=== PATIENT | male | born 1970 | race Caucasian/White ===

== ENCOUNTER 2017-10-26 10:12 | Inpatient (IN) | payer OTHER ==
[~2017-10-26] VITALS: Ht 175.3 cm; Wt 104.5 kg
[~2017-10-26 10:12] MED LIST: AMOXIL 875 MG875 MG PO; AUGMENTIN 875 M1 TAB PO; CALCIUM + D 6001 TAB PO; CLARITIN10 MG PO; FLUTICASONE PRO16 GM NASB; KEFLEX500 MG PO; LOSARTAN POTASS50 MG PO; MONTELUKAST SOD10 MG PO; MOTRIN600 MG PO; MULTIVITAMIN1 TAB PO; NORVASC5 M1 PO; OMEPRAZOLE40 MG PO; SYMBICORT 160/41 PUF INH
[2017-10-26] MEDS ORDERED: TRAZODONE HCL100 M1 PO (11:12)
[2017-10-26] MEDS ORDERED: MIRALAX17 G1 PO (11:12)
[2017-10-26] MEDS ORDERED: LIVER REFRESH PO (11:13)
--- NOTE | 2017-10-26 11:44 | ED GI/GU/ABDOMINAL COMPLAINT ---
History of Present Illness General Chief Complaint: Abdominal Pain/Flank Pain Stated Complaint: ABD DISTENTION; JAUNDICE Source: patient Exam Limitations: no limitations Vital Signs & Intake/Output Vital Signs & Intake/Output Vital Signs Date Time Temp Pulse Resp B/P B/P Pulse O2 O2 Flow FiO2 Mean Ox Delivery Rate 10/26 1350 100.1 96 18 113/67 93 Room Air 10/26 1149 97 Room Air 10/26 1019 99.2 127 20 135/85 94 Room Air Allergies Coded Allergies: NO KNOWN ALLERGIES (11/07/10) Reconcile Medications Amlodipine Besylate (Norvasc) 5 MG TABLET 1 TAB PO DAILY HTN (Reported) Fluticasone Propionate 50 MCG/ACTUATION SPRAY.SUSP 2 SPRAY NASB DAILY ALLERGIES (Reported) [LIVER REFRESH] 1 TAB PO DAILY UNKNOWN (Reported) Polyethylene Glycol 3350 (Miralax) 17 GRAM POWD.PACK 1 PAC PO DAILY CONSTIPATION (Reported) dissolve in water Trazodone HCl 100 MG TABLET 1 TAB PO QPM DEPRESSION (Reported) Triage Note: PT TO ED C/O LOWER ABD PAIN WITH ABD DISTENTION. PT APPEARS VERY JAUNDICE. Triage Nurses Notes Reviewed? yes Onset: Gradual Duration: worse persistent since (1 week) Timing: no prior history Quality/Severity: cramping, sharpness Severity Numbers: 6 Location: generalized abdomen Radiation: no radiation Activities at Onset: none Prior Abdominal Problems: none Past Sexual History: Unobtainable at this time Modifying Factors: Worsens With: other (exertion). HPI: Patient is a 46-year-old male with history of hypertension presenting to the emergency department to complaint of abdominal distention, diffuse abdominal discomfort, yellowing skin and eyes nose first nose approximately one week ago. Symptoms getting worse. Reports that he drinks alcohol occasionally. No history of similar symptoms in the past. Patient does report that he always has to watch what he eats because he is sensitive to several foods that upset his stomach. No family history of liver issues. Patient denies any drug use. No fevers or chills. No malaise. Positive shortness of breath is worse with exertion. Denies any sputum production. No recent travel. Denies recent antibiotic use. No changes in medications. Denies history of any abdominal surgeries. Denies any lower extremities edema. No palpitations. Denies dizziness or visual changes. Denies any change in bowel or bladder habits. Last bowel movement was this morning and normal. No blood in the stool. (Jazmine Coleman) Past History Travel History Traveled to [place] past 21 day No Medical History Any Pertinent Medical History? see below for history Cardiovascular: hypertension Tetanus Vaccine: 04/08/14 Surgical History Surgical History: non-contributory Psychosocial History What is your primary language Citizen Of [place] Tobacco Use: Quit >30 days ago ETOH Use: occasional use Illicit Drug Use: denies illicit drug use Family History Hx Contributory? No (Jazmine Coleman) Review of Systems Review of Systems Constitutional: Reports: see HPI, malaise. Comments Review of systems: See HPI, All other systems negative. Constitutional, no chills fever or weight loss HEENT: No visual changes no sore throat no congestion Cardiovascular: No chest pain ,palpitation , orthopnea or ankle swelling Skin, no rashes Respiratory: No cough sputum or hemoptysis GI: No nausea no vomiting : No dysuria No hematuria Muscle skeletal: no back pain, no neck pain, Neurologic: No numbness no confusion Psych: Stress related to family issues. No HI or SI. Heme/endocrine: No bruising no bleeding no polyuria or polydipsia Immunology: No splenectomy or history of AIDS (Jazmine Coleman) Physical Exam Physical Exam General Appearance: alert, awake, comfortable, overtly jaundiced appearing Gastrointestinal: distention, tenderness Comments: Well-developed well-nourished person in no acute distress HEENT: extraocular motion intact, no nystagmus. Pupils equally round and reactive to light and accommodation. No scleral icterus present. Mild pallor noted to ocular conjunctiva bilaterally. Nose is atraumatic. External auditory canal and Tympanic membranes clear. Pharynx normal. No swelling or edema. Neck: Normal inspection, full range of motion Back: Nontender, no CVA tenderness. Full range of motion Cardiovascular: Regular rate and rhythms no murmurs rubs or gallops, normal JVP Respiratory: Chest nontender. No respiratory distress.breath sounds diminished to auscultation bilaterally Abdomen: Diffusely distended and tense, increased vasculature noted in the central aspect of the abdomen ,few telangiectasias noted. Hypoactive bowel sounds throughout. Positive ascites noted. Extremity: No edema, no calf tenderness to palpation, normal and equal pulses. Neuro: Alert oriented x3, motor sensory normal, cranial nerves II through XII grossly intact. Skin: Diffuse jaundice appreciated on the face, abdomen. Psych: Mood and affect is normal, memory and judgment is normal. Core Measures ACS in differential dx? No Sepsis Present: No Sepsis Focused Exam Completed? No (Scot PAZ,Jazmine) Progress Differential Diagnosis: SBO, LIVER FAILURE, CHOLECYSTITIS, CHOLEDOCHOLITHIASIS, CHOLANGITIS, PANCREATITIS, PANCREATIC CANCER, ASCITES, BACTERIAL PERITONITIS, HEPATITIS Plan of Care: Orders Procedure Date/time Status PROTHROMBIN TIME 10/27 599 Active HEPATIC FUNCTION PANEL 10/27 599 Active CBC WITHOUT DIFFERENTIAL 10/27 599 Active BASIC ELECTROLYTES PLUS BUN&CR 10/27 06 Active Regular Diet 10/26 D Active Pathway - chart 10/26 1530 Active House Staff 10/26 1530 Active Patient Data 10/26 1530 Active Code Status 10/26 1530 Active Change service to 10/26 1526 Active LACTIC ACID 10/26 1421 Active Patient Data 10/26 1346 Active CULTURE,BODY FLUID 10/26 1336 Active OXYGEN SETUP (GEN) 10/26 1240 Active Saline Lock 10/26 1240 Active Admit to inpatient 10/26 1240 Active Vital Signs 10/26 1240 Active Activity/Ambulation 10/26 1240 Active Code Status 10/26 1240 Complete EKG 10/26 1210 Active Add-on Test (ER Only) 10/26 1204 Active Intake & Output 10/26 1148 Active BLOOD CULTURE 10/26 1146 Active LIPASE 10/26 1130 Active DIRECT BILIRUBIN 10/26 1130 Active COMPREHENSIVE METABOLIC PANEL 10/26 1130 Active AMYLASE 10/26 1130 Active PARTIAL THROMBOPLASTIN TIME 10/26 1121 Complete PROTHROMBIN TIME 10/26 1121 Complete AMMONIA 10/26 1121 Active LACTIC ACID 10/26 1121 Active HEPATITIS PANEL 10/26 1121 Active CBC WITHOUT DIFFERENTIAL 10/26 1120 Complete URINALYSIS 10/26 1041 Complete Current Medications Sig/Yuval Start time Last Medication Dose Stop Time Status Admin Lactulose 20 GM TID 10/26 1600 AC 10/26 (Enulose 20GM/30ML) 1612 Folic Acid 1 MG DAILY 10/26 1535 AC 10/26 (Folic Acid) 1612 Amlodipine Besylate 5 MG DAILY 10/26 1528 AC 10/26 (Norvasc) 1612 Phytonadione 10 MG DAILY 10/26 1528 AC 10/26 (Mephyton 5MG Tab) 10/29 0959 1612 Sodium Chloride 1,000 ML ONCE ONE 10/26 1245 AC 10/26 (Normal Saline 0.9%) 10/27 0204 1300 Laboratory Tests 10/26/17 1344: Fluid Albumin Cancelled 10/26/17 1336: Fluid WBC Cancelled, Fld Total RBCs Counted Cancelled 10/26/17 1130: Anion Gap 16, Estimated GFR > 60, BUN/Creatinine Ratio 11.7, Glucose 149 H, Lactic Acid 4.3 H, Calcium 8.2 L, Total Bilirubin 19.8 H, Direct Bilirubin 17.6 H, AST 232 H, ALT 59, Alkaline Phosphatase 187 H, Ammonia 82 H, Total Protein 6.7, Albumin 3.0 L, Globulin 3.7, Albumin/Globulin Ratio 0.8 L, Amylase < 30 L, Lipase 44, PT 104.6 *H, INR 9.38 *H, APTT 64 H, CBC w Diff MAN DIFF ORDERED, RBC 3.46 L, MCV 103.8 H, MCH 35.9 H, MCHC 34.6, RDW 19.9 H, MPV 8.9, Segmented Neutrophils 83 H, Band Neutrophils 9 H, Lymphocytes 4 L, Monocytes 4, Platelet Estimate ADEQUATE, Normocytic RBCs VERIFIED, Normochromic RBCs VERIFIED, Hepatitis A IgM Ab Pending, Hep Bs Antigen NONREACTIVE, Hep B Core IgM Ab Conf Pending, Hepatitis C Antibody Pending 10/26/17 1120: Sodium Cancelled, Potassium Cancelled, Chloride Cancelled, Carbon Dioxide Cancelled, Anion Gap Cancelled, BUN Cancelled, Creatinine Cancelled, BUN/ Creatinine Ratio Cancelled, Glucose Cancelled, Calcium Cancelled, Total Bilirubin Cancelled, Direct Bilirubin Cancelled, AST Cancelled, ALT Cancelled, Alkaline Phosphatase Cancelled, Total Protein Cancelled, Albumin Cancelled, Globulin Cancelled, Albumin/Globulin Ratio Cancelled 10/26/17 1050: Urine Color ICTRC H, Urine Clarity CLDY H, Urine pH 6.5, Ur Specific [place] 1.025, Urine Protein 100 H, Urine Ketones TRACE H, Urine Nitrite POS H, Urine Bilirubin POS@ICTO H, Urine Urobilinogen 1.0, Ur Leukocyte Esterase NEG, Ur Microscopic SEDIMENT EXAMINED, Urine RBC RARE, Urine WBC 1-3 H, Ur Epithelial Cells MANY H, Urine Mucus MOD H, Micro UA Comment , Urine Hemoglobin TRACE- INTACT H, Urine Glucose NEG Microbiology 10/26 1347 BLOOD: Blood Culture - RECD 10/26 1336 BODY FLUID: Body Fluid Culture - ORD 10/26 1336 BODY FLUID: Gram Stain - ORD 10/26 1155 BLOOD: Blood Culture - RECD 10/26/2017 12:46:00 PM arrival patient is afebrile vitals are stable. Patient does have protuberant abdomen, diffuse jaundice with scleral icterus. Sensory biliary or liver process. Patient does report that he drinks often but denies daily alcohol use. Last drink was yesterday, reports 4 beers. Pending imaging patient will likely need paracentesis. 10/26/2017 1:36:57 PM patient has elevated white blood cell count at 20, temperature is 99.5 Fahrenheit, spoke with Dr. MACHADO, recommending we prophylactically treat with Unasyn for questionable peritonitis spite not having done paracentesis YET. 10/26/2017 2:04:[address] Lopez in radiology, calling in regards to paracentesis order. He reports that there is not enough fluid to be tapped and paracentesis cannot be done at this time. He also suggested paracentesis cannot be done at this time because INR level is elevated. 10/26/2017 2:44:[address] Diane, gastroenterology, recommending paracentesis needs to be done for diagnostic tap, he'll consult with medicine team to arrange us as it was previously canceled based on recommendations by radiology. Patient admitted for cirrhosis, elevated LFTs, hyperbilirubin anemia. Discussed with . He agrees with plan. Diagnostic Imaging: Viewed by Me: Radiology Read, CT Scan. Discussed w/RAD: Radiology Read, CT Scan. Radiology Impression: PATIENT: JANETH KRAFT PRESENT AGE: 46 PATIENT ACCOUNT NO: [id number] : 71 LOCATION: [facility] [place] ORDERING PHYSICIAN: Jazmine PAZ SERVICE DATE: 10/26/17114 EXAM TYPE: CAT - CT ABD & PELVIS W IV CONTRAST EXAMINATION: CT ABDOMEN AND PELVIS WITH CONTRAST CLINICAL INFORMATION: Abdominal pain. Distention, jaundice. Rule out hepatobiliary process COMPARISON: Prior abdominal ultrasound 09/01/2013 TECHNIQUE: Multidetector volumetric imaging was performed of the abdomen and pelvis following IV administration of 95 mL of Optiray 320 intravenous contrast. Sagittal and coronal reformatted images were obtained on the technologist's workstation. DLP: 986 mGy-cm FINDINGS: LUNG BASES: Bibasilar atelectasis. LIVER, GALLBLADDER, AND BILIARY TREE: There is diffuse hepatomegaly. The liver is diffusely hypoattenuating, particularly peripherally consistent with hepatic steatosis or more likely edema. There is enlargement of the caudate lobe. The portal veins enhance normally. The hepatic veins appear attenuated, possibly compressed, but they remain patent. The gallbladder is unremarkable with no evidence of radiopaque gallstones, gallbladder wall thickening, or obvious pericholecystic inflammatory changes. PANCREAS: Unremarkable. SPLEEN: Spleen is enlarged measuring 16-17 cm craniocaudal. No focal splenic lesion. ADRENAL GLANDS: No adrenal mass. KIDNEYS AND URETERS: Symmetric bilateral renal enhancement. 3.7 cm right lower pole renal cyst. 1.1 cm simple cyst of the posterior cortex of the right mid-upper kidney. No hydronephrosis, calculi, or solid mass. BLADDER: Unremarkable. GASTROINTESTINAL TRACT: The small and large bowel are unremarkable. The appendix is unremarkable. ABDOMINAL WALL: There is mild fluid/fat stranding of the subcutaneous fat suggesting early anasarca. LYMPH NODES: Normal. VASCULAR: Normal caliber abdominal aorta. PELVIC VISCERA: The prostate and seminal vesicles are unremarkable. OSSEOUS STRUCTURES: Degenerative disc disease at L5-S1. Age indeterminate but likely chronic superior endplate compression deformity of T12. Normal sagittal alignment. Asymmetric moderate degenerative arthrosis of the left hip with subchondral cyst formation. There may be some degree of developmental hip dysplasia or a background of prior avascular necrosis. There is a small volume of ascites with trace fluid seen adjacent the liver and spleen and greater amount of fluid dependently in the pelvis. IMPRESSION: Enlarged, hypoattenuating liver. The appearance favors diffuse hepatic congestion and edema although there may be a component of diffuse fatty infiltration as well. There is ascites. The appearance is nonspecific but I would favor a diffuse infiltrative process such as acute hepatitis. Marked steatohepatitis should be considered in the appropriate clinical setting. There is no biliary ductal dilation to suggest obstruction as the etiology for the patient's jaundice. DICTATED BY: Alonzo Ye MD DATE/TIME DICTATED:10/26/171407 SENIOR ENGINEER:PRAHCI DATE/TIME TRANSCRIBED:10/26/171407 CONFIDENTIAL, DO NOT COPY WITHOUT APPROPRIATE AUTHORIZATION. <Electronically signed in Other Vendor System> SIGNED BY: Alonzo Ye MD 10/26/17 1420 CXR Impression: PATIENT: JANETH KRAFT PRESENT AGE: 46 PATIENT ACCOUNT NO: [id number] : 71 LOCATION: [facility] ORDERING PHYSICIAN: Jazmine PAZ SERVICE DATE: 10/26/17 EXAM TYPE: RAD - XRY-PORTABLE CHEST XRAY EXAMINATION: XR PORTABLE CHEST CLINICAL INFORMATION: Shortness of breath. Assess for pneumonia or cardiomegaly. COMPARISON: Chest x- ray 07/04/2016. TECHNIQUE: Portable AP 80 degrees semierect view of the chest was obtained. FINDINGS: The lung colvin are hypoexpanded. There is nonspecific mild elevation of the right hemidiaphragm. Linear opacity at the right base is most consistent with atelectasis. There is no focal consolidation. The cardiac silhouette is normal. There are no pleural effusions or pneumothoraces. The central pulmonary vasculature appears normal. There are no acute osseous findings. IMPRESSION: 1. There are no acute cardiopulmonary findings. DICTATED BY: John Galvan MD DATE/TIME DICTATED:10/26/171305 SENIOR ENGINEER:PRACHI DATE/TIME TRANSCRIBED:10/26/171305 CONFIDENTIAL, DO NOT COPY WITHOUT APPROPRIATE AUTHORIZATION. <Electronically signed in Other Vendor System> SIGNED BY: John Galvan MD 10/26/17 1312 Initial ED EKG: SINUS TACHYCARDIA AT 101 BEATS PER MINUTES, ARTIFACT PRESENT Prior EKG: unchanged (Jazmine Coleman) Radiology Impression: PATIENT: JANETH KRAFT PRESENT AGE: 46 PATIENT ACCOUNT NO: [id number] : 71 LOCATION: [facility] [place] ORDERING PHYSICIAN: Jazmine PAZ SERVICE DATE: 10/26/17 EXAM TYPE: CAT - CT ABD & PELVIS W IV CONTRAST EXAMINATION: CT ABDOMEN AND PELVIS WITH CONTRAST CLINICAL INFORMATION: Abdominal pain. Distention, jaundice. Rule out hepatobiliary process COMPARISON: Prior abdominal ultrasound 09/01/2013 TECHNIQUE: Multidetector volumetric imaging was performed of the abdomen and pelvis following IV administration of 95 mL of Optiray 320 intravenous contrast. Sagittal and coronal reformatted images were obtained on the technologist's workstation. DLP: 986 mGy-cm FINDINGS: LUNG BASES: Bibasilar atelectasis. LIVER, GALLBLADDER, AND BILIARY TREE: There is diffuse hepatomegaly. The liver is diffusely hypoattenuating, particularly peripherally consistent with hepatic steatosis or more likely edema. There is enlargement of the caudate lobe. The portal veins enhance normally. The hepatic veins appear attenuated, possibly compressed, but they remain patent. The gallbladder is unremarkable with no evidence of radiopaque gallstones, gallbladder wall thickening, or obvious pericholecystic inflammatory changes. PANCREAS: Unremarkable. SPLEEN: Spleen is enlarged measuring 16-17 cm craniocaudal. No focal splenic lesion. ADRENAL GLANDS: No adrenal mass. KIDNEYS AND URETERS: Symmetric bilateral renal enhancement. 3.7 cm right lower pole renal cyst. 1.1 cm simple cyst of the posterior cortex of the right mid-upper kidney. No hydronephrosis, calculi, or solid mass. BLADDER: Unremarkable. GASTROINTESTINAL TRACT: The small and large bowel are unremarkable. The appendix is unremarkable. ABDOMINAL WALL: There is mild fluid/fat stranding of the subcutaneous fat suggesting early anasarca. LYMPH NODES: Normal. VASCULAR: Normal caliber abdominal aorta. PELVIC VISCERA: The prostate and seminal vesicles are unremarkable. OSSEOUS STRUCTURES: Degenerative disc disease at L5-S1. Age indeterminate but likely chronic superior endplate compression deformity of T12. Normal sagittal alignment. Asymmetric moderate degenerative arthrosis of the left hip with subchondral cyst formation. There may be some degree of developmental hip dysplasia or a background of prior avascular necrosis. There is a small volume of ascites with trace fluid seen adjacent the liver and spleen and greater amount of fluid dependently in the pelvis. IMPRESSION: Enlarged, hypoattenuating liver. The appearance favors diffuse hepatic congestion and edema although there may be a component of diffuse fatty infiltration as well. There is ascites. The appearance is nonspecific but I would favor a diffuse infiltrative process such as acute hepatitis. Marked steatohepatitis should be considered in the appropriate clinical setting. There is no biliary ductal dilation to suggest obstruction as the etiology for the patient's jaundice. DICTATED BY: Alonzo Ye MD DATE/TIME DICTATED:10/26/171407 SENIOR ENGINEER:PRACHI DATE/TIME TRANSCRIBED:10/26/171407 CONFIDENTIAL, DO NOT COPY WITHOUT APPROPRIATE AUTHORIZATION. <Electronically signed in Other Vendor System> SIGNED BY: Alonzo Ye MD 10/26/17 1420 (Demetri Machado MD) Departure Departure Time of Disposition: 1447 Disposition: STILL A PATIENT Condition: Stable Clinical Impression Primary Impression: Hyperbilirubinemia Secondary Impressions: Elevated INR, Transaminitis Referrals: Clau Bahena MD (PCP/Family) Departure Forms: Customer Survey General Discharge Information Admission Note Spoke With: Ean Edmonds MD Documentation of Exam: Documentation of any treatments & extenuating circumstances including Concerns Regarding Discharge (functional status, medication knowledge or non-compliance, living conditions, etc.) that warrant an admission rather than observation: requiring GI consultation for ascites, pending peritoneal fluid analysis patient may need continued antibiotics, serial lab checks including coagulation studies to ensure they are normalizing with treatmenT. (Jazmine Coleman) PA/THEOLOGY TEACHER Co-Sign Statement Statement: ED Attending supervision documentation- x I saw and evaluated the patient. I have also reviewed all the pertinent lab results and diagnostic results. I agree with the findings and the plan of care as documented in the PA's/THEOLOGY TEACHER's documentation. Abdominal distension, caput medusae, jaundice CT without biliary obstruction. [] I have reviewed the ED Record and agree with the PA's/THEOLOGY TEACHER's documentation. [] Additions or exceptions (if any) to the PAs/THEOLOGY TEACHER's note and plan are summarized below: [] (Demetri Machado MD) Critical Care Note Critical Care Note Critical Care Time: 30-74 min (Jazmine Coleman)
[2017-10-26 11:47] LABS: HEMATOCRIT 35.9 % (42-52); MEAN CORPUSCULAR HGB 35.9 PG (27.0-31.0); MEAN CORPUSCULAR HGB CONC 34.6 G/DL (33.0-37.0); MEAN CORPUSCULAR VOLUME 103.8 FL (80.0-94.0); MEAN PLATELET VOLUME 8.9 FL (7.4-10.4); PLATELET COUNT 203 /CUMM (130-400); RBC DISTRIBUTION WIDTH 19.9 % (11.5-14.5); RED BLOOD CELL CT 3.46 /CUMM (4.70-6.10); WHITE BLOOD CELL COUNT 20.1 /CUMM (4.8-10.8)
[2017-10-26 12:00] LABS: PTT 64 SEC (25-37)
[2017-10-26 12:08] LABS: PT 104.6 SEC (9.4-12.5)
--- NOTE | 2017-10-26 13:12 | RADIOLOGY REPORT ---
EXAMINATION: XR PORTABLE CHEST CLINICAL INFORMATION: Shortness of breath. Assess for pneumonia or cardiomegaly. COMPARISON: Chest x-ray 07/04/2016. TECHNIQUE: Portable AP 80 degrees semierect view of the chest was obtained. FINDINGS: The lung colvin are hypoexpanded. There is nonspecific mild elevation of the right hemidiaphragm. Linear opacity at the right base is most consistent with atelectasis. There is no focal consolidation. The cardiac silhouette is normal. There are no pleural effusions or pneumothoraces. The central pulmonary vasculature appears normal. There are no acute osseous findings. IMPRESSION: 1. There are no acute cardiopulmonary findings.
--- NOTE | 2017-10-26 13:52 | History & Physical ---
See Addendum Kee Guzman 10/26/17 1351: General Information and HPI History of Present Illness: Ms. Barbosa is a 46 yo (1PPD x 1.5 yrs, quit 6 mos ago) male with PMH significant for HTN, ILD (organizing PNA on biopsy 2012) s/p LLL wedge resection , alcoholic hepatitis without cirrhosis s/p biopsy (05/2016), alcohol use disorder, BL gynecomastia who presents to the ED with yellowish skin and eyes for the past 1 week. Patient reports prior to [facility] his friend told him that his eyes and skin were yellow though he did not recognize it. At that time he did notice diffused abdominal pain accompanied by abdominal distention, and a left groin pain that radiates to his LLE. He also reports nausea with and a poor appetite which he attributes to stress. Yesterday he drank 2 shots of alcohol but reports he drinks occasionally. He also reports poor sleep due to his depression and stress. He has been short of breath for years but is able to walk up to 2 miles. He is being seen by Dr. Jackelin Camejo at [facility]. He reports in the past he was given a 6 month Prednisone taper for his lung disease in the past. He denies CP, confusion, diarrhea, constipation, melena, hematemesis, blurry vision, urinary symptoms. Allergies/Medications Allergies: Coded Allergies: NO KNOWN ALLERGIES (11/07/10) Home Med list Amlodipine Besylate (Norvasc) 5 MG TABLET 1 TAB PO DAILY HTN (Reported) Fluticasone Propionate 50 MCG/ACTUATION SPRAY.SUSP 2 SPRAY NASB DAILY ALLERGIES (Reported) [LIVER REFRESH] 1 TAB PO DAILY UNKNOWN (Reported) Polyethylene Glycol 3350 (Miralax) 17 GRAM POWD.PACK 1 PAC PO DAILY CONSTIPATION (Reported) dissolve in water Trazodone HCl 100 MG TABLET 1 TAB PO QPM DEPRESSION (Reported) Past History Travel History Traveled to [place] past 21 day No Medical History Cardiovascular: hypertension Respiratory: organizing pneumonia Hepatic: alcoholic hepatitis Influenza Vaccine: 05/20/17 Tetanus Vaccine: 04/08/14 Surgical History Surgical History: non-contributory Past Family/Social History Psychosocial History Smoking Status: Former Smoker ETOH Use: occasional use Illicit Drug Use: denies illicit drug use Sexual History Past Sexual History Unobtainable at this time Review of Systems Review of Systems Constitutional: Reports: see HPI. Exam & Diagnostic Data Last 24 Hrs of Vital Signs/I&O Vital Signs Date Time Temp Pulse Resp B/P B/P Pulse O2 O2 Flow FiO2 Mean Ox Delivery Rate 10/26 1149 97 Room Air 10/26 1019 99.2 127 20 135/85 94 Room Air Intake & Output 10/26 1600 10/26 0800 10/26 0000 Intake Total 0 Output Total Balance 0 Intake, Oral 0 Patient 240 lb Weight Weight Standing Scale Measurement Method Physical Exam General Appearance Alert, Oriented X3, Cooperative, No Acute Distress, obese Skin jaundice, petechiae HEENT sclera icteric, dry mucous membranes Neck prominent JVD Cardiovascular Regular Rate, Normal S1, Normal S2, No Murmurs Lungs Clear to Auscultation, Normal Air Movement Abdomen abdominal distention with distended veins Extremities BL tremors Breasts No breast discharge, No breast masses, no breast tenderness Last 24 Hrs of Labs/Harinder: Laboratory Tests 10/26/17 1130: Anion Gap 16, Estimated GFR > 60, BUN/Creatinine Ratio 11.7, Glucose 149 H, Lactic Acid 4.3 H, Calcium 8.2 L, Total Bilirubin 19.8 H, Direct Bilirubin 17.6 H, AST 232 H, ALT 59, Alkaline Phosphatase 187 H, Ammonia 82 H, Total Protein 6.7, Albumin 3.0 L, Globulin 3.7, Albumin/Globulin Ratio 0.8 L, Amylase < 30 L, Lipase 44, PT 104.6 *H, INR 9.38 *H, APTT 64 H, CBC w Diff MAN DIFF ORDERED, RBC 3.46 L, MCV 103.8 H, MCH 35.9 H, MCHC 34.6, RDW 19.9 H, MPV 8.9, Segmented Neutrophils 83 H, Band Neutrophils 9 H, Lymphocytes 4 L, Monocytes 4, Platelet Estimate ADEQUATE, Normocytic RBCs VERIFIED, Normochromic RBCs VERIFIED, Hepatitis A IgM Ab Pending, Hep Bs Antigen NONREACTIVE, Hep B Core IgM Ab Conf Pending, Hepatitis C Antibody Pending 10/26/17 1120: Sodium Cancelled, Potassium Cancelled, Chloride Cancelled, Carbon Dioxide Cancelled, Anion Gap Cancelled, BUN Cancelled, Creatinine Cancelled, BUN/ Creatinine Ratio Cancelled, Glucose Cancelled, Calcium Cancelled, Total Bilirubin Cancelled, Direct Bilirubin Cancelled, AST Cancelled, ALT Cancelled, Alkaline Phosphatase Cancelled, Total Protein Cancelled, Albumin Cancelled, Globulin Cancelled, Albumin/Globulin Ratio Cancelled 10/26/17 1050: Urine Color ICTRC H, Urine Clarity CLDY H, Urine pH 6.5, Ur Specific Orange 1.025, Urine Protein 100 H, Urine Ketones TRACE H, Urine Nitrite POS H, Urine Bilirubin POS@ICTO H, Urine Urobilinogen 1.0, Ur Leukocyte Esterase NEG, Ur Microscopic SEDIMENT EXAMINED, Urine RBC RARE, Urine WBC 1-3 H, Ur Epithelial Cells MANY H, Urine Mucus MOD H, Micro UA Comment , Urine Hemoglobin TRACE- INTACT H, Urine Glucose NEG Microbiology 10/26 1347 BLOOD: Blood Culture - RECD 10/26 1336 BODY FLUID: Body Fluid Culture - ORD 10/26 133 BODY FLUID: Gram Stain - ORD 10/26 1155 BLOOD: Blood Culture - RECD Diagnostic Data CXR Results FINDINGS: The lung colvin are hypoexpanded. There is nonspecific mild elevation of the right hemidiaphragm. Linear opacity at the right base is most consistent with atelectasis. There is no focal consolidation. The cardiac silhouette is normal. There are no pleural effusions or pneumothoraces. The central pulmonary vasculature appears normal. There are no acute osseous findings. IMPRESSION: 1. There are no acute cardiopulmonary findings. Other Results CT ABDOMEN AND PELVIS WITH CONTRAST IMPRESSION: Enlarged, hypoattenuating liver. The appearance favors diffuse hepatic congestion and edema although there may be a component of diffuse fatty infiltration as well. There is ascites. The appearance is nonspecific but I would favor a diffuse infiltrative process such as acute hepatitis. Marked steatohepatitis should be considered in the appropriate clinical setting. There is no biliary ductal dilation to suggest obstruction as the etiology for the patient's jaundice. Assessment/Plan Assessment: Ms. Barbosa is a 46 yo former smoker (1PPD x 1.5 yrs, quit 6 mos ago) male with PMH significant for HTN, 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 On review of records sent to Dr. Bahena, hepatitis panel done at [facility] in 2015 was negative except HBsAB. Liver biopsy done at [facility] showed severe macrovesicular steatosis and steatohepatitis with foci of bridging fibrosis Problem list: History of alcoholic hepatitis Recurrent jaundice and scleral icterus - may be 2/2 recent alcohol use Elevated INR Lactic acidosis Transaminitis Plan: Admit to general medicine for further evaluation and monitoring GI consult Continue amlodipine 5 mg Hold trazodone IV ceftriaxone for prophylaxis for SBP Gentle hydration Vitamin K 10 mg x 3 doses Lactulose daily Consider paracentesis if worsening ascitic fluid Utox lvl Diet: Regular DVT prophylaxis: ALPS Code: Full As Ranked By This Provider Problem List: 1. Transaminitis 2. Elevated INR 3. Hyperbilirubinemia Core Measures/Misc (04/05) Acute Coronary Syndrome ACS Diagnosis: No Congestive Heart Failure Congestive Heart Failure Diagnosis No Cerebrovascular Accident CVA/TIA Diagnosis: No VTE (View Protocol) VTE Risk Factors Age>40 No Mechanical VTE Prophylaxis d/t N/A MechProphylax Ordered No VTE Pharm Prophylaxis d/t NA PharmProphylax ordered Sepsis (View protocol) Sepsis Present: No Huma Hernandez MD 10/26/17 1352: Resident Review Statement Resident Statement: examined this patient, discussed with seo intern, agreed with seo intern, discussed with family Other Findings: Patient is a 46-year-old male presented with abdominal pain and distention. 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 He was evaluated in at [facility] in 2016 and hepatitis C/hepatitis A/HIV was negative and hepatitis B surface antibody was positive.Found to have high ferritin(6177), liver biopsy showed severe microvascular steatosis and , heterogeneous fibrosis with portal and periportal and sinusoidal and foci suggestive of bridging fibrosis. Advised for genetic mutation analysis for hemochromatosis. His Last INR 1.3 (2017) Echo with bubble study(2016) - LVEF 55%,? RVSP CTA chest 2017-pulmonary hypertension, 1 cm subcarinal lymph node. DLCO - low Personal history-He occasional use of alcohol, started at age of 21 and now drinking socially, he was also smokes 1 pack per day, but stopped since last 5-6 month. Denies for cocaine and illicit drug abuse. He is unemployed currently. 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 ED course - Vital signs temperature 99.2, pulse 197, respiratory rate 20, blood pressure 135 /85, SPO2 94% on room air Physical exam-comfortable, no acute distress, icteric sclera,oral mucosa dry, bilateral gynecomastia, Neck vein distended, spider angioma, chest bilateral equal air entry, heart S1-S2 normal, Abdomen moderately distended,Caput Meducae. Blood workup showed hemoglobin 12.4, hematocrit 35.9, platelet count 203, MCV 103.8, segmented neutrophils 83, antineutrophil 9, lymphocyte 4, sodium 138, potassium 3.5, chloride 103, carbon dioxide 18, anion gap 16, BUN 7, creatinine 0.6, glucose 149, lactic acid 4.3, calcium 8.2, total bilirubin 19.8, direct bilirubin 17.6, AST 232, ALT 59, alkaline phosphatase 97, ammonia 82, albumin 3.0, amylase less than 30, lipase 44, PT/INR 104/9.3 at, APTT 64, CXR - There are no acute cardiopulmonary findings. CT abdoman and Pelvis -enlarged liver secondary to fatty infiltration, steatohepatitis, hepatosplenomegaly, mild ascitis. Assessment and plan -history is taken from the patient and according to him he was here as his friend encouraged him for further evaluation. He was having chronic back pain, pain in his abdomen. He denies for any fever, chills, nausea , vomiting, diarrhea, blood loss from any site of his body. He drank around 4-6 glasses of alcohol and drank yesterday with his friends. On evaluation of emergency he found to have abnormal liver function tests including hyperbilirubinemia and transaminitis. CT scan of abdomen and pelvis showed mild ascites with severe hepatosplenomegaly. Probably he has alcoholic steatohepatitis which was confirmed before in 2016 and cleared up secondary to alcohol intake. He was also having high blood count/leukocytosis of 20,000 with mild bandemia. He also had lactic acidosis probably secondary to hepatitis. He was already given 1 L of fluid and antibiotic in the ED. We will follow repeat lactic acid. Acute on chronic compensated liver disease probably secondary to alcohol intake - * We will admit the patient to general medicine floor * We will check serum alcohol level * We will watch for CIWA but avoid lorazepam. * We will hold trazodone * Start patient on injection ceftriaxone 1 g IV daily for possible cholangitis * Syrup lactulose 20 g once a day with target of bowel movement of 2 - 3 times a day * Will follow GI recommendation High PT/INR - * Will watch for the bleeding * We will start patient on tablet vitamin K 10 mg -Once a day for 3 days * We will repeat LFT and PT/INR tomorrow Leukocytosis of unknown significance with mild grade fever with lactic acid - * We will follow the Blood culture, and continue on ceftriaxone ? cholangitis. Mild Ascitits -confirmed after talking to the radiologist * Will observe it Hypertension - * We will continue tablet amlodipine 5 mg once a day and will consider beta- jose if needed in the future. Macrocytosis - had normal Vitb12 and folate * Will start patient on multivitamin and folic acid CODE STATUS -full code Diet -heart healthy diet DVT prophylaxis-on hold because of high INR Gideon Brooks MD 10/26/17 1705: Attending MD Review Statement Attending Statement Attending MD Statement: examined this patient, discuss w/resident/PA/TITLE LAWYER, agreed w/resident/PA/TITLE LAWYER, reviewed EMR data (avail), discussed with nursing, discussed with case mgmt, amended to note Attending Assessment/Plan: Patient seen and examined. He reports that he presented to the emergency room at the behest of his friends for evaluation of worsening jaundice. According to him to join this has been going on for over 2 weeks. On evaluation in the emergency room he was found to have significant transaminitis and hyperbilirubinemia. Imaging studies revealed hepatomegaly. On questioning patient initially stated she was unaware of any prior liver disease. He later reported that he had been told he had fatty liver disease since his teenage years. We able to get records from [facility] where he turned out that patient had been worked up extensively in May 2016. At that time he was admitted for acute alcoholic hepatitis. Transjugular liver biopsy during the hospitalization was suggestive of alcoholic hepatitis without cirrhosis. He was followed in the liver care clinic. He was also noted to have gynecomastia for which a biopsy was done and revealed no evidence of malignancy. It does not appear that patient has been consistent with follow-up since then. Also significant in his history is a history of interstitial lung disease characterized by organizing pneumonia on biopsy. Patient admits to binging on alcohol yesterday with friends. Reports prior to that he has not had a drink in over 4 weeks. Denies any use of medications that would induce hepatitis. Viral hepatitis panel was negative in the past and is currently being repeated. Denies any fever or chills. He was afebrile hemodynamically stable on presentation however he did develop a low-grade temperature 100.1 and presented with leukocytosis of 20,000 with mild bandemia. Imaging study shows no evidence of hepatobiliary obstruction or masses. He does have hepatomegaly. On examination he is alert oriented 3. He is conversant appropriately. Pupils anicteric. Skin is jaundice. Heart sounds are regular. Lungs are clear to auscultation bilaterally. Abdomen is markedly distended. It was initially thought to be secondary to massive ascites however on review with the radiologist he has very little ascites not amenable to paracentesis. He does have significant hepatosplenomegaly. He has 1-2+ bilateral pedal edema bilaterally. Problems: 1. Acute on chronic transaminitis with painless jaundice. 2. Underlying history of alcoholic liver disease. 3. Hypertension 4. Obesity 5. Low-grade fever with leukocytosis. Plan: -Admit to inpatient General medical service. -Transaminitis may have been brought on by his alcohol binge yesterday. -He will be managed conservatively. He is not a candidate for liver transplant. -Trend his liver function tests daily. -Repeat CBCs in a.m. Obtain pancultures. Empiric antibiotic therapy with ceftriaxone for now given his low-grade fever leukocytosis. Will reevaluate need for ongoing antibiotic therapy. -DVT prophylaxis with bilateral compression device. -Gastroenterology consultation.
--- NOTE | 2017-10-26 14:20 | CT SCAN REPORT ---
EXAMINATION: CT ABDOMEN AND PELVIS WITH CONTRAST CLINICAL INFORMATION: Abdominal pain. Distention, jaundice. Rule out hepatobiliary process COMPARISON: Prior abdominal ultrasound 09/01/2013 TECHNIQUE: Multidetector volumetric imaging was performed of the abdomen and pelvis following IV administration of 95 mL of Optiray 320 intravenous contrast. Sagittal and coronal reformatted images were obtained on the technologist's workstation. DLP: 986 mGy-cm FINDINGS: LUNG BASES: Bibasilar atelectasis. LIVER, GALLBLADDER, AND BILIARY TREE: There is diffuse hepatomegaly. The liver is diffusely hypoattenuating, particularly peripherally consistent with hepatic steatosis or more likely edema. There is enlargement of the caudate lobe. The portal veins enhance normally. The hepatic veins appear attenuated, possibly compressed, but they remain patent. The gallbladder is unremarkable with no evidence of radiopaque gallstones, gallbladder wall thickening, or obvious pericholecystic inflammatory changes. PANCREAS: Unremarkable. SPLEEN: Spleen is enlarged measuring 16-17 cm craniocaudal. No focal splenic lesion. ADRENAL GLANDS: No adrenal mass. KIDNEYS AND URETERS: Symmetric bilateral renal enhancement. 3.7 cm right lower pole renal cyst. 1.1 cm simple cyst of the posterior cortex of the right mid-upper kidney. No hydronephrosis, calculi, or solid mass. BLADDER: Unremarkable. GASTROINTESTINAL TRACT: The small and large bowel are unremarkable. The appendix is unremarkable. ABDOMINAL WALL: There is mild fluid/fat stranding of the subcutaneous fat suggesting early anasarca. LYMPH NODES: Normal. VASCULAR: Normal caliber abdominal aorta. PELVIC VISCERA: The prostate and seminal vesicles are unremarkable. OSSEOUS STRUCTURES: Degenerative disc disease at L5-S1. Age indeterminate but likely chronic superior endplate compression deformity of T12. Normal sagittal alignment. Asymmetric moderate degenerative arthrosis of the left hip with subchondral cyst formation. There may be some degree of developmental hip dysplasia or a background of prior avascular necrosis. There is a small volume of ascites with trace fluid seen adjacent the liver and spleen and greater amount of fluid dependently in the pelvis. IMPRESSION: Enlarged, hypoattenuating liver. The appearance favors diffuse hepatic congestion and edema although there may be a component of diffuse fatty infiltration as well. There is ascites. The appearance is nonspecific but I would favor a diffuse infiltrative process such as acute hepatitis. Marked steatohepatitis should be considered in the appropriate clinical setting. There is no biliary ductal dilation to suggest obstruction as the etiology for the patient's jaundice.
--- NOTE | 2017-10-26 17:06 | Admission Certification ---
Admission Certification Certification Statement - As attending physician, I certify that at the time of - admission, based on clinical presentation, severity of - symptoms, need for further diagnostic testing and - therapeutic interventions, and risk of adverse outcomes - without in-hospital treatment, in my clinical assessment, - this patient requires an acute hospital stay for a minimum - of two nights or longer. I have also considered psychsocial - factors such as support system, advanced age, financial - issues, cognitive issues, and failed out-patient treatments, - past re-admission history, safety of patient, and lack of - compliance as applicable. Specific rationale supporting this admission is: Patient will require hospitalization for further evaluation and management of his acute on chronic transaminitis and painless jaundice.
[2017-10-26 18:55] VITALS: BP 140/80
--- NOTE | 2017-10-26 21:52 | Cons- Gastroenterology ---
General Information and HPI Consulting Request Date of Consult: 10/26/17 Requested By: Gideon Brooks MD Reason for Consult: Altered liver function Jaundice Abdominal distention Source of Information: patient History of Present Illness: 46-year-old male with a history of alcohol abuse and alcoholic hepatitis. He was admitted to [place] in 2016 for alcoholic hepatitis, and had a transjugular liver biopsy demonstrating bridging fibrosis but no cirrhosis. He claims that he has not been drinking more than several beers per week since that time. He admits to depression and anxiety, but stops short of admitting to self- medicating with alcohol. Over the past perhaps few months he has had increasing abdominal distention and vague/generalized discomfort. Over the past month he's developed some lower extremity swelling, and intermittent dark urine. His appetite has diminished. He was noted to be jaundiced by a friend several days ago. His bowel movements have remained regular on MiraLAX (2-3 per day), and he has not noted blood per rectum or dark stool. He has not been bruising, denies epistaxis, gum bleeding. He has had no dysuria/hematuria, decreased urination, fever, sweats, chills. Since a respiratory infection 6 weeks ago he has had intermittent cough, and a headache which he attributes to sinus congestion. He denies change in cognition such as loss of focus, loss of memory, confusion. He denies somnolence. Allergies/Medications Allergies: Coded Allergies: NO KNOWN ALLERGIES (11/07/10) Home Med List: Amlodipine Besylate (Norvasc) 5 MG TABLET 1 TAB PO DAILY HTN (Reported) Fluticasone Propionate 50 MCG/ACTUATION SPRAY.SUSP 2 SPRAY NASB DAILY ALLERGIES (Reported) [LIVER REFRESH] 1 TAB PO DAILY UNKNOWN (Reported) Polyethylene Glycol 3350 (Miralax) 17 GRAM POWD.PACK 1 PAC PO DAILY CONSTIPATION (Reported) dissolve in water Trazodone HCl 100 MG TABLET 1 TAB PO QPM DEPRESSION (Reported) Current Medications: Current Medications Sig/Yuval Start time Last Medication Dose Route Stop Time Status Admin Amlodipine Besylate 0 .STK-MED ONE 10/26 1600 DC PO Amlodipine Besylate 5 MG DAILY 10/26 1528 AC 10/26 PO 1612 Ampicillin Sodium/ 0 .STK-MED ONE 10/26 1307 DC Sulbactam Sodium .ROUTE Ampicillin Sodium/ 3,000 MG ONCE ONE 10/26 1245 DC 10/26 Sulbactam Sodium IV 10/26 1314 1308 Sodium Chloride 100 ML Ceftriaxone Sodium 1,000 MG DAILY 10/27 1000 AC IV Folic Acid 0 .STK-MED ONE 10/26 1600 DC PO Folic Acid 1 MG DAILY 10/26 1535 AC 10/26 PO 1612 Ibuprofen 400 MG ONCE ONE 10/26 2130 DC PO 10/26 2131 Lactulose 20 GM DAILY 10/27 1000 AC PO Lactulose 20 GM TID 10/26 1600 DC 10/26 PO 1612 Phytonadione 10 MG DAILY 10/26 1528 AC 10/26 PO 10/29 0959 1612 Sodium Chloride 1,000 ML Q13H 10/26 2130 AC IV Sodium Chloride 1,000 ML ONCE ONE 10/26 1245 AC 10/26 IV 10/27 0204 1300 Past History Travel History Traveled to [place] past 21 day No Medical History Cardiovascular: hypertension Respiratory: organizing pneumonia Hepatic: alcoholic hepatitis Surgical History Surgical History: non-contributory Psychosocial History Smoking Status: Former Smoker ETOH Use: occasional use Illicit Drug Use: denies illicit drug use Review of Systems Review of Systems Constitutional: Reports: malaise. Denies: chills, fever, unexplained weight loss. EENTM: Reports: icterus. Denies: epistaxis. Cardiovascular: Reports: edema. Denies: chest pain, syncope. Respiratory: Reports: cough. Denies: hemoptysis, short of breath, wheezing. GI: Reports: see HPI. Genitourinary: Denies: dysuria, hematuria. Musculoskeletal: Denies: muscle stiffness, neck pain. Skin: Reports: jaundice. Denies: lesions. Neurological/Psychological: Reports: anxiety, depressed, emotional problems, headache. Denies: cognitive dysfunction, confusion, numbness, paresthesia, petit mal seizures, tremors. Hematologic/Endocrine: Denies: bruising, bleeding, polyuria, polydipsia. Exam & Diagnostic Data Vital Signs and I&O Vital Signs Date Time Temp Pulse Resp B/P B/P Pulse O2 O2 Flow FiO2 Mean Ox Delivery Rate 10/26 1855 98.3 99 20 140/80 93 Room Air 10/26 1639 99.8 93 18 126/62 97 Room Air 10/26 1350 100.1 96 18 113/67 93 Room Air 10/26 1149 97 Room Air 10/26 1019 99.2 127 20 135/85 94 Room Air Intake & Output 10/26 04010/25 040 Intake Total 0 Output Total Balance 0 Intake, Oral 0 Patient 240 lb Weight Weight Standing Scale Measurement Method Physical Exam: Well-developed, well-nourished, in no apparent distress. Alert and oriented with normal cognition. No asterixis. Skin with jaundice, no excoriations, no spider telangiectasias or palmar erythema. No adenopathy. Sclera anicteric. No oropharyngeal or tongue lesions. Neck supple without thyromegaly or mass. No JVD. Positive gynecomastia. Lungs clear. Heart regular rhythm. Abdomen is distended with caput medusa, normal bowel sounds, no bruit, no rub, marked hepatomegaly, no palpable spleen, no significant tenderness. Extremities with bilateral edema, normal pulses, no cyanosis. Results Pertinent Lab Results: Laboratory Tests 10/26 10/26 10/26 10/26 2128 1810 1344 1336 Chemistry Lactic Acid (0.7 - 2.1 mmol/L) Pending 3.0 H Other Body Source Fluid WBC Cancelled Fld Total RBCs Counted Cancelled Fluid Albumin Cancelled 10/26 10/26 1130 1120 Chemistry Sodium (137 - 145 mmol/L) 138 Cancelled Potassium (3.5 - 5.1 mmol/L) 3.5 Cancelled Chloride (98 - 107 mmol/L) 103 Cancelled Carbon Dioxide (22 - 30 mmol/L) 18 L Cancelled Anion Gap (5 - 16) 16 Cancelled BUN (9 - 20 mg/dL) 7 L Cancelled Creatinine (0.7 - 1.2 mg/dL) 0.6 L Cancelled Estimated GFR (>60 ml/min) > 60 BUN/Creatinine Ratio (7 - 25 %) 11.7 Cancelled Glucose (65 - 99 mg/dL) 149 H Cancelled Lactic Acid (0.7 - 2.1 mmol/L) 4.3 H Calcium (8.4 - 10.2 mg/dL) 8.2 L Cancelled Total Bilirubin (0.2 - 1.3 mg/dL) 19.8 H Cancelled Direct Bilirubin (< 0.4 mg/dL) 17.6 H Cancelled AST (17 - 59 U/L) 232 H Cancelled ALT (21 - 72 U/L) 59 Cancelled Alkaline Phosphatase (< 127 U/L) 187 H Cancelled Ammonia (9 - 30 umol/L) 82 H Total Protein (6.3 - 8.2 g/dL) 6.7 Cancelled Albumin (3.5 - 5.0 g/dL) 3.0 L Cancelled Globulin (1.9 - 4.2 gm/dL) 3.7 Cancelled Albumin/Globulin Ratio (1.1 - 2.2 %) 0.8 L Cancelled Amylase (30 - 110 U/L) < 30 L Lipase (23 - 300 U/L) 44 Coagulation PT (9.4 - 12.5 SEC) 104.6 *H INR (0.90 - 1.17) 9.38 *H APTT (25 - 37 SEC) 64 H Hematology CBC w Diff MAN DIFF ORDERED WBC (4.8 - 10.8 /CUMM) 20.1 H RBC (4.70 - 6.10 /CUMM) 3.46 L Hgb (14.0 - 18.0 G/DL) 12.4 L Hct (42 - 52 %) 35.9 L MCV (80.0 - 94.0 FL) 103.8 H MCH (27.0 - 31.0 PG) 35.9 H MCHC (33.0 - 37.0 G/DL) 34.6 RDW (11.5 - 14.5 %) 19.9 H Plt Count (130 - 400 /CUMM) 203 MPV (7.4 - 10.4 FL) 8.9 Segmented Neutrophils (42.2 - 75.2 %) 83 H Band Neutrophils (0.0 - 5.0 %) 9 H Lymphocytes (20.5 - 51.1 %) 4 L Monocytes (1.7 - 9.3 %) 4 Platelet Estimate (ADEQUATE) ADEQUATE Normocytic RBCs VERIFIED Normochromic RBCs VERIFIED Serology Hepatitis A IgM Ab (NONREACTIVE) Pending Hep Bs Antigen (NONREACTIVE) NONREACTIVE Hep B Core IgM Ab Conf (NONREACTIVE) Pending Hepatitis C Antibody (NONREACTIVE) Pending Toxicology Serum Alcohol (<10 MG/DL) < 10.0 10/26 1050 Urines Urine Color (YEL,AMB,STR) ICTRC H Urine Clarity (CLEAR) CLDY H Urine pH (5.0 - 8.0) 6.5 Ur Specific [place] (1.001 - 1.035) 1.025 Urine Protein (NEG,<30 MG/DL) 100 H Urine Ketones (NEG) TRACE H Urine Nitrite (NEG) POS H Urine Bilirubin (NEG) POS@ICTO H Urine Urobilinogen (0.1 - 1.0 EU/dl) 1.0 Ur Leukocyte Esterase (NEG) NEG Ur Microscopic SEDIMENT EXAMINED Urine RBC (0 - 5 /HPF) RARE Urine WBC (0 - 2 /HPF) 1-3 H Ur Epithelial Cells (NONE,FEW) MANY H Urine Mucus (FEW,NONE) MOD H Micro UA Comment Urine Hemoglobin (NEG) TRACE-INTACT H Urine Glucose (N MG/DL) NEG Imaging/Other Studies: CT scan: IMPRESSION: Enlarged, hypoattenuating liver. The appearance favors diffuse hepatic congestion and edema although there may be a component of diffuse fatty infiltration as well. There is ascites. The appearance is nonspecific but I would favor a diffuse infiltrative process such as acute hepatitis. Marked steatohepatitis should be considered in the appropriate clinical setting. There is no biliary ductal dilation to suggest obstruction as the etiology for the patient's jaundice. Assessment/Plan Assessment/Recommendations: Patient with a history of alcoholic liver disease presents with jaundice, synthetic dysfunction (hypoalbuminemia, marked coagulopathy), abdominal distention secondary to hepatomegaly with at least some ascites, edema, leukocytosis. There is preserved renal function, no overt encephalopathy, no bleeding. The most likely etiology is severe alcoholic hepatitis, despite the patient's denial of substantial alcohol ingestion. In addition he may have progressed to cirrhosis. He has had adverse reactions to glucocorticoids and refuses to consider this therapy. Given his refusal to admit alcohol abuse, would also not start pentoxifylline at this time (and in any event its efficacy seems to be limited in moderate to severe alcoholic hepatitis). This does not appear to be cholangitis, and there is no apparent role for antibiotics. According to IR, there is insufficient ascites to safely perform a diagnostic paracentesis. Recommendations * Check serologies to hepatitis A, B and C. In addition, antinuclear antibody, ceruloplasmin, Monospot, HSV and CMV serologies * Administer parenteral vitamin K 10 mg daily for 2 days (not oral) and follow- up PT/PTT daily * Follow CBC, CMP daily * No corticosteroids (after discussion with patient), nor pentoxifylline at this time * No EGD at this time (in any event beta blockers contraindicated in acute alcoholic hepatitis) * Continue MiraLAX daily. Hold on lactulose and rifaximin at this time. * I will review imaging with radiology Consult Acknowledgment - Thank you for your consult request.
[2017-10-26 22:07] VITALS: BP 148/40
[2017-10-26 22:13] VITALS: BP 124/64
[2017-10-27] VITALS (7 sets, daily range): BP systolic 110–1328; BP diastolic 64–77
--- NOTE | 2017-10-27 07:02 | PN- Housestaff ---
Linda Longo MD,[facility] 10/27/17 0702: Subjective Follow-up For: Alcoholic hepatitis Subjective: Patient visited today, was lying in bed comfortably in no acute distress, was alert and oriented. No fever or chills, no chest pain, no other events. was complaing of left groin pain, which noted to be chronic and started after moving objects last year. Had increased swelling of Right LE compared to left side, requested for doppler US to rule out DVT. Continued oral Vit K. Social consult was placed. IR was contacted again regarding attempt to try to tap the ascites fluid again, IR nurse called an informed that imaging reviewed with radiologist and there is no enough fluid for paracenthesis. Review of Systems Constitutional: Reports: see HPI. Objective Last 24 Hrs of Vital Signs/I&O Vital Signs Date Time Temp Pulse Resp B/P B/P Pulse O2 O2 Flow FiO2 Mean Ox Delivery Rate 10/27 1404 98.5 92 20 124/77 99 Room Air 10/27 1000 85 18 1328/68 10/27 0912 85 138/68 10/27 0800 98.6 72 118/65 10/27 0800 96 Room Air 10/27 0731 98.6 72 20 118/65 96 10/27 0015 99.4 10/27 0013 99.4 10/27 0000 Room Air 10/26 2227 101.3 10/26 2213 100.3 96 20 124/64 93 Room Air 10/26 1855 98.3 99 20 140/80 93 Room Air 10/26 1639 99.8 93 18 126/62 97 Room Air Intake & Output 10/27 1600 10/27 0800 10/27 0000 Intake Total 1200 1080 240 Output Total Balance 1200 1080 240 Intake, IV 600 600 0 Intake, Oral 600 480 240 Number 1 0 Bowel Movements Patient 230 lb Weight Weight Bed scale Measurement Method Physical Exam General Appearance: Alert, Oriented X3, Cooperative, No Acute Distress Skin: Icter Skin Temp/Moisture Exam: Warm/Dry Sepsis Skin Exam (color): Normal for Ethnicity HEENT: Atraumatic, EOMI, icter Cardiovascular: Normal S1, Normal S2 Lungs: Clear to Auscultation Abdomen: distanded, liver and spleen increased size Extremities: Left thigh relatively more swell compared to R side. Current Medications: Current Medications Sig/Yuval Start time Last Medication Dose Route Stop Time Status Admin Alprazolam 0.5 MG ONCE ONE 10/27 2014 DC 10/27 PO 10/27 Amlodipine Besylate 5 MG DAILY 10/26 1528 AC 10/27 PO 0912 Ceftriaxone Sodium 1,000 MG DAILY 10/27 1000 AC 10/27 IV 0911 Folic Acid 1 MG DAILY 10/26 1535 AC 10/27 PO 0911 Ibuprofen 400 MG ONCE ONE 10/28 0115 DC 10/28 PO 10/28 0116 0119 Melatonin 5 MG AT BEDTIME 10/28 2200 AC PO Phytonadione 10 MG DAILY 10/27 1000 CAN IV Phytonadione 10 MG DAILY 10/27 1000 AC 10/27 PO 0949 Sodium Chloride 1,000 ML Q13H 10/26 2130 AC 10/28 IV 0006 Assessment/Plan Assessment: Patient is a 46 yo former smoker (1PPD x 1.5 yrs, quit 6 mos ago) male with presented for evaluation of icter and abdominal distansion PMH: HTN, 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 On review of records sent to Dr. Bahena, hepatitis panel done at [place] in 2015 was negative except HBsAB. Liver biopsy done at [place] showed severe macrovesicular steatosis and steatohepatitis with foci of bridging fibrosis Problem list: History of alcoholic hepatitis Recurrent jaundice and scleral icterus - may be 2/2 recent alcohol use Elevated INR Lactic acidosis Transaminitis Left thigh swelling Plan: Admit to general medicine for further evaluation and monitoring Follow GI consult Continue amlodipine 5 mg Hold trazodone IV ceftriaxone for prophylaxis for SBP Gentle hydration Vitamin K po x 3 doses Lactulose daily - not candidate for steoird treatment at this time Doppler negative for DVT, CT scan suggestive of AVN, consider MRI Diet: Regular DVT prophylaxis: ALPS Code: Full Problem List: 1. Elevated INR 2. Hyperbilirubinemia Pain Ratin Pain Location: None Pain Goal: Pain 4 or less Pain Plan: Continue current plan Tomorrow's Labs & Rationales: CBC BEP PT LFT Gideon Brooks MD 10/27/17 1652: Attending MD Review Statement Attending Statement Attending MD Statement: examined this patient, discuss w/resident/PA/CHIEF [employer]ATION OFFICER, agreed w/resident/PA/CHIEF [employer]ATION OFFICER, reviewed EMR data (avail), discussed with nursing, discussed with case mgmt, amended to note Attending Assessment/Plan: Patient seen and examined. Resting comfortably. Denies nausea vomiting. Denies abdominal pain. He does complain of left groin pain radiating down the leg. On examination he has no palpable hernia in the groin area. There is no tenderness on exam. Left lower extremity did appear swollen compared to the right however venous Doppler was negative for any evidence of deep vein thrombosis. Patient believes that the pain may be muscular in nature stating that he has strained the right side in a similar manner in the past. He had an abdominal CT on presentation which showed evidence of hepatosplenomegaly and hepatitis. CT abdomen revealed some degree of developmental hip dysplasia all background of avascular necrosis. Recommendations: -Continue conservative management for his acute on chronic hepatitis likely provoked by alcohol use. GI consultation noted. Laboratory studies ordered as suggested. -Patient was febrile overnight with T-max of 101.3. Pancultures are pending. Case was discussed again with the radiology service, he does not have significant enough ascitic fluid to warrant a safe paracenteses. -Continue empiric antibiotic with IV Rocephin for now. Follow-up on culture results. -Recommend pain management with oxycodone as needed pain. -INR is trending downwards with oral vitamin K. Continues to complete 3 days. -On account of his complaint of groin pain and CT findings suggestive of possible avascular necrosis would recommend obtaining pelvic bone CT scan.
[2017-10-27 08:05] LABS: ABSOLUTE BASOPHIL COUNT 0.1 /CUMM (0.0-0.2); ABSOLUTE EOSINOPHIL COUNT 0.1 /CUMM (0.0-0.7); ABSOLUTE GRANULOCYTE CT 12.2 /CUMM (1.4-6.5); ABSOLUTE LYMPH COUNT 1.8 /CUMM (1.2-3.4); ABSOLUTE MONOCYTE COUNT 0.6 /CUMM (0.10-0.60); BASOPHIL % 0.7 % (0.0-2.0); EOSINOPHIL % 0.4 % (0-5); HEMATOCRIT 32.7 % (42-52); MEAN CORPUSCULAR HGB 36.8 PG (27.0-31.0); MEAN CORPUSCULAR HGB CONC 35.1 G/DL (33.0-37.0); MEAN PLATELET VOLUME 8.7 FL (7.4-10.4); PLATELET COUNT 163 /CUMM (130-400); RBC DISTRIBUTION WIDTH 19.9 % (11.5-14.5); RED BLOOD CELL CT 3.11 /CUMM (4.70-6.10); WHITE BLOOD CELL COUNT 14.7 /CUMM (4.8-10.8)
[2017-10-27 08:20] LABS: PTT 59 SEC (25-37)
[2017-10-27 08:27] LABS: PT 59.7 SEC (9.4-12.5)
--- NOTE | 2017-10-27 14:50 | ULTRASOUND REPORT ---
EXAMINATION: US TRIPLEX LOWER EXTREMITY, LEFT CLINICAL INFORMATION: Swollen left calf and ankle with pain COMPARISON: None TECHNIQUE: Color-flow triplex imaging with spectral analysis and compression Doppler were performed on the lower extremity. FINDINGS: Respiratory variation, normal compression and augmented flow are noted throughout the lower extremity. The visualized common femoral vein, superficial femoral vein, profunda femoral vein, popliteal vein and midcalf peroneal and posterior tibial venous segments show no evidence of deep venous thrombosis. There is no Rowley's cyst. IMPRESSION: Normal triplex scan without evidence of deep venous thrombosis involving the lower extremity.
--- NOTE | 2017-10-27 18:50 | CT SCAN REPORT ---
EXAMINATION: CT PELVIS WITHOUT CONTRAST CLINICAL INFORMATION: Left hip pain. COMPARISON: CT abdomen pelvis 10/26/2017 TECHNIQUE: Axial images obtained through the pelvis without oral or intravenous contrast. Coronal and sagittal reformatted images are performed at the CT scanner. DLP: 627.18 mGy-cm FINDINGS: The left hip is abnormal. There is subchondral sclerosis and cystic changes of the left femoral head with mild flattening of the weightbearing portion of the left femoral head. There is a small linear cortical fracture with subtle cortical step-off that communicates to the subchondral cyst at the anterior cortex of the femoral head, coronal image 81 axial image 309 (3). There is a second similar site of a small cortical step-off communicating to subchondral bone at the superior lateral femoral head at the weightbearing portion of the femoral head, axial image 281 (3). These are changes suspicious for avascular necrosis. The joint space of the left hip is maintained similar to the joint space of the right hip. The right humeral head is normal. The right hip is normal. There is vacuum disc phenomenon L5-S1 with disc height narrowing and endplate spurs. There are diverticula of the colon without evidence of diverticulitis. There is a moderate volume of free fluid in the cul-de-sac. There is low attenuation of liver parenchyma. There is a cortical cyst at the lower pole of the right kidney measuring 3 cm, density measurement 5 Hounsfield units. IMPRESSION: There are changes of the left femoral head suggestive of avascular necrosis. This can be further evaluated with MRI.
[2017-10-28 06:28] VITALS: BP 102/62
--- NOTE | 2017-10-28 06:53 | PN- Housestaff ---
Linda Longo MD,[facility] 10/28/17 0652: Subjective Follow-up For: Alcoholic hepatitis Subjective: Patient visited today, was lying in bed comfortably in no acute distress, was alert and oriented. No fever or chills, no shortness of breathing, no chest pain, no other events. Had conversation with Dr Monte regarding AVN of head of femur, noted to follow in outpatient. reviewed clinical condition with GI, inform patient can be discharged. Planned to be discharged today. Review of Systems Constitutional: Reports: see HPI. Objective Last 24 Hrs of Vital Signs/I&O Vital Signs Date Time Temp Pulse Resp B/P B/P Pulse O2 O2 Flow FiO2 Mean Ox Delivery Rate 10/28 1512 97.1 85 20 108/62 97 Room Air 10/28 1000 90 18 124/70 10/28 0949 90 124/70 10/28 0800 77 22 102/62 10/28 0628 98.1 77 22 102/62 94 Room Air 10/27 2225 98.4 81 19 110/64 92 Room Air 10/27 2200 98.4 81 19 110/64 10/27 2000 98 18 124/64 Intake & Output 10/28 1600 10/28 0800 10/28 0000 Intake Total 600 1410 Output Total 600 Balance 600 810 Intake, IV 600 610 Intake, Oral 800 Number 0 Bowel Movements Output, Urine 600 Physical Exam General Appearance: Alert, Oriented X3, Cooperative, No Acute Distress, icterus Skin Temp/Moisture Exam: Warm/Dry Sepsis Skin Exam (color): Normal for Ethnicity HEENT: Atraumatic, EOMI, Mucous Membr. moist/pink Cardiovascular: Regular Rate, Normal S1, Normal S2 Lungs: Normal Air Movement Abdomen: distanded Extremities: edema Current Medications: Current Medications Sig/Yuval Start time Last Medication Dose Route Stop Time Status Admin Alprazolam 0.5 MG ONCE ONE 10/27 2014 DC 10/27 PO 10/27 Amlodipine Besylate 5 MG DAILY 10/26 1528 AC 10/28 PO 0949 Ceftriaxone Sodium 1,000 MG DAILY 10/27 1000 AC 10/28 IV 0948 Fluticasone 2 PUF BID 10/28 1000 AC 10/28 Propionate INH 1229 Folic Acid 1 MG DAILY 10/26 1535 AC 10/28 PO 0948 Ibuprofen 400 MG ONCE ONE 10/28 0115 DC 10/28 PO 10/28 0116 0119 Melatonin 5 MG AT BEDTIME 10/28 2200 AC PO Phytonadione 10 MG DAILY 10/27 1000 AC 10/28 PO 0948 Sodium Chloride 1,000 ML Q13H 10/26 2130 AC 10/28 IV 1229 Last 24 Hrs of Lab/Harinder Results Last 24 Hrs of Labs/Mics: Laboratory Tests 10/28/17 0653: Anion Gap 12, Estimated GFR > 60, BUN/Creatinine Ratio 24.0, Total Bilirubin 22.0 H, Direct Bilirubin 20.0 H, AST 128 H, ALT 39, Alkaline Phosphatase 129 H, Total Protein 5.4 L, Albumin 2.2 L, PT 30.8 H, INR 2.80 H, CBC w Diff NO MAN DIFF REQ, RBC 3.02 L, MCV 105.5 H, MCH 37.1 H, MCHC 35.1, RDW 19.4 H, MPV 8.8, Gran % 83.9 H, Lymphocytes % 8.7 L, Monocytes % 6.0, Eosinophils % 0.9, Basophils % 0.5, Absolute Granulocytes 11.9 H, Absolute Lymphocytes 1.2, Absolute Monocytes 0.9 H, Absolute Eosinophils 0.1, Absolute Basophils 0.1 Assessment/Plan Assessment: Patient is a 46 yo former smoker (1PPD x 1.5 yrs, quit 6 mos ago) male with presented for evaluation of icter and abdominal distansion PMH: HTN, 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 On review of records sent to Dr. Bahena, hepatitis panel done at [facility] in 2016 was negative except HBsAB. Liver biopsy done at [facility] showed severe macrovesicular steatosis and steatohepatitis with foci of bridging fibrosis Patient was admitted to [facility] floor for management of following conditions: Alcoholic hepatitis transaminitis, Jaundice and scleral icterus, Elevated INR Gi was consulted, patient was not candidate for steoird therapy. Patient was administered PO Vitk. LFT improved. INR was decreased to 2.8. With improvement of condition patient was stable to be discharged. patient was instructed to stop drinking alcohol and follow in outpatient. Left thigh swelling CT scan of the hip revealed AVN of the left head. had conversation with Dr Monte, informed to follow in outpatient. Diet: Regular DVT prophylaxis: was not administered due to increased INR and ambulation Code: Full Problem List: 1. Avascular bone necrosis 2. Alcoholic hepatitis 3. Mood disorder 4. Elevated INR Pain Ratin Pain Location: Left hip Pain Goal: Pain 4 or less Pain Plan: Tramadol BID Tomorrow's Labs & Rationales: None Evangelist Brooks [email or web address] 10/28/17 1058: Attending MD Review Statement Attending Statement Attending MD Statement: examined this patient, discuss w/resident/PA/PLASTICS REPAIRER, agreed w/resident/PA/PLASTICS REPAIRER, reviewed EMR data (avail), discussed with nursing, discussed with case mgmt, amended to note Attending Assessment/Plan: Patient seen and examined. Resting comfortably not in any acute distress. Reports that he was tearful overnight because he is eager to go home. He does admit to history of depression and anxiety and would like to follow-up with psychiatry service in the outpatient setting. Denies nausea vomiting. Reports abdominal discomfort on and off. Continues to report left hip pain on and off. CT of the pelvis yesterday showed evidence of avascular necrosis of the left hip. He has been afebrile and remains hemodynamically stable. His white cell count is trending downwards. Blood and urine cultures have returned negative. Problems: 1. Acute on chronic transaminitis with painless jaundice. 2. Underlying history of alcoholic liver disease. 3. Hypertension 4. Obesity 5. Fever 6. Avascular necrosis of the left hip. Plan: -Transaminitis are trending downwards. We have reemphasized with the patient that he needs to abstain from alcohol use. We are referring him to the [facility] service for outpatient follow-up. He currently verbalized understanding and appears willing to comply with the plan of care. -For his history of depression and anxiety will refer him to the outpatient psychiatric service for follow-up. -He is afebrile. Blood and urine cultures are negative. Fever may be related to his transaminitis. Viral hepatitis panel was negative. Will discontinue antibiotic therapy. Patient is to follow-up with his primary care provider next week. -We will have patient evaluated by the vascular surgery service for his left hip avascular necrosis. We are not anticipating any surgical intervention from a particularly given his acute hepatitis. We will follow-up recommendations prior to discharge today.
[2017-10-28 08:00] VITALS: BP 102/62
[2017-10-28 08:35] LABS: ABSOLUTE BASOPHIL COUNT 0.1 /CUMM (0.0-0.2); ABSOLUTE EOSINOPHIL COUNT 0.1 /CUMM (0.0-0.7); ABSOLUTE GRANULOCYTE CT 11.9 /CUMM (1.4-6.5); ABSOLUTE LYMPH COUNT 1.2 /CUMM (1.2-3.4); ABSOLUTE MONOCYTE COUNT 0.9 /CUMM (0.10-0.60); BASOPHIL % 0.5 % (0.0-2.0); EOSINOPHIL % 0.9 % (0-5); HEMATOCRIT 31.8 % (42-52); MEAN CORPUSCULAR HGB 37.1 PG (27.0-31.0); MEAN CORPUSCULAR HGB CONC 35.1 G/DL (33.0-37.0); MEAN CORPUSCULAR VOLUME 105.5 FL (80.0-94.0); MEAN PLATELET VOLUME 8.8 FL (7.4-10.4); PLATELET COUNT 155 /CUMM (130-400); RBC DISTRIBUTION WIDTH 19.4 % (11.5-14.5); RED BLOOD CELL CT 3.02 /CUMM (4.70-6.10); WHITE BLOOD CELL COUNT 14.1 /CUMM (4.8-10.8)
[2017-10-28 08:50] LABS: PT 30.8 SEC (9.4-12.5)
[2017-10-28 09:54] LABS: GRANULOCYTE % 83.9 % (42.2-75.2)
[2017-10-28 10:00] VITALS: BP 124/70
[2017-10-28] MEDS ORDERED: FOLIC ACID1 M1 PO ×3 (12:00→15:39)
[2017-10-28 15:12] VITALS: BP 108/62
[2017-10-28] MEDS ORDERED: TRAMADOL HCL50 M1 PO ×2 (15:19→15:31)
[2017-10-28] MEDS ORDERED: MELATONIN3 M4 PO ×3 (15:21→15:39)
--- NOTE | 2017-10-28 15:24 | Patient Discharge Instructions ---
Discharge Instructions General Discharge Information You were seen/treated for: Alcoholic hepatitis Watch for these problems: Severe shortness of breathing, dyspnea, bleeding, icter, or worsening of any other symptoms. Special Instructions: Please follow with your PCP within one week of discharge. Please follow-up with orthopedic surgeon within 1 week of discharge. Please follow with outpatient psychiatry service within 1 week of discharge. Please stop drinking alcohol. This is of special importance. Please come back to hospital if symptoms worsen. Diet Continue normal diet: No Recommended Diet: Regular, Low sodium Activity Full Activity/No Limits: No Activity Self Limited: Yes Acute Coronary Syndrome Inclusion Criteria At DC or during hospital stay patient has or had the following: ACS DIAGNOSIS No Discharge Core Measures Meds if any: Prescribed or Continued at Discharge Meds if any: NOT Prescribed or Continued at Discharge Congestive Heart Failure Inclusion Criteria At DC or during hospital stay patient has or had the following: CHF DIAGNOSIS No Discharge Core Measures Meds if any: Prescribed or Continued at Discharge Meds if any: NOT Prescribed or Continued at Discharge Cerebrovascular accident Inclusion Criteria At DC or during hospital stay patient has or had the following: CVA/TIA Diagnosis No Discharge Core Measures Meds if any: Prescribed or Continued at Discharge Meds if any: NOT Prescribed or Continued at Discharge Venous thromboembolism Inclusion Criteria VTE Diagnosis No VTE Type NONE VTE Confirmed by (Test) NONE Discharge Core Measures - Per Current guidelines, there needs to be overlap - treatment for the first 5 days of Warfarin therapy. - If discharged on Warfarin prior to 5 days of - overlap therapy, the patient will need to be - assessed for post discharge needs including - *Post discharge parental anticoagulation - *Warfarin and/or parental anticoagulation education - *Follow up date to check INR post discharge At least 5 days overlap therapy as Inpatient No Meds if any: Prescribed or Continued at Discharge Note: Overlap Therapy is Warfarin and Anticoagulant Meds if any: NOT Prescribed or Continued at Discharge
--- NOTE | 2017-10-28 16:29 | Discharge Summary ---
Hospital Course Allergies: Coded Allergies: NO KNOWN ALLERGIES (11/07/10) Discharge Instructions Medications at Discharge Discharge Medications: Continue taking these medications: Amlodipine Besylate (Norvasc) 5 MG TABLET 1 Tablet ORAL DAILY Comments: Last Taken: 10/28/17 Time: 9:49AM Fluticasone Propionate (Fluticasone Propionate) 50 MCG/ACTUATION SPRAY.SUSP 2 [place] Both sides of nose DAILY Comments: Last Taken: 10/28/17 Time: 12:29PM Trazodone HCl (Trazodone HCl) 100 MG TABLET 1 Tablet ORAL Every night Qty = 90 Comments: NOT GIVEN IN HOSPITAL Polyethylene Glycol 3350 (Miralax) 17 GRAM POWD.PACK 1 Packet ORAL DAILY Instructions: dissolve in water Comments: NOT GIVEN IN HOSPITAL [LIVER REFRESH] 1 Tablet ORAL DAILY Start taking the following new medications: Tramadol HCl (Tramadol HCl) 50 MG TABLET 1 Tablet ORAL 2 x Daily as needed as needed for PAIN SCALE 7-10 (SEVERE) Qty = 20 No Refills Instructions: . Folic Acid (Folic Acid) 1 MG TABLET 1 Milligram ORAL DAILY Qty = 60 No Refills Melatonin (Melatonin) 3 MG TABLET 1 Tablet ORAL Every night Qty = 30 No Refills
--- NOTE | 2017-10-28 16:58 | PN- Gastroenterology ---
Assessment/Plan GI Assessment/Recommendations: Clinical alcoholic hepatitis with probable cirrhosis. Mild worsening hyperbilirubinemia, but improvement in coagulopathy. No overt encephalopathy. Slightly worse anasarca. Mild alcohol withdrawal symptoms evident. Unclear why he remains on antibiotics. Recommendations * Follow CBC, CMP, INR daily * Stop ceftriaxone * No corticosteroids nor pentoxifylline * No EGD at this time (in any event beta blockers contraindicated in acute alcoholic hepatitis) * Absolute alcohol abstinence. Avoid acetaminophen, NSAIDs. * Outpatient GI follow-up in 2 weeks after discharge. In addition will need a psychiatry follow-up, and alcohol rehabilitation/program. Subjective Subjective: The patient is anxious, but overall feels better. He denies nausea, abdominal pain, blood per rectum. He still does not admit to daily drinking, but does not deny it when challenged. Objective Vital Signs and I&Os Vital Signs Date Time Temp Pulse Resp B/P B/P Pulse O2 O2 Flow FiO2 Mean Ox Delivery Rate 10/28 1512 97.1 85 20 108/62 97 Room Air 10/28 1000 90 18 124/70 10/28 0949 90 124/70 10/28 0800 77 22 102/62 10/28 0628 98.1 77 22 102/62 94 Room Air 10/27 2225 98.4 81 19 110/64 92 Room Air 10/27 2200 98.4 81 19 110/64 10/27 2000 98 18 124/64 Intake & Output 10/28 1600 10/28 0400 10/27 1600 10/27 0400 10/26 1600 10/26 0400 Intake Total 1800 1410 2280 240 0 Output Total 600 Balance 9520 492 0858 240 0 Intake, IV 0108 686 6123 0 Intake, Oral 244 346 7275 240 0 Number 0 1 0 Bowel Movements Output, Urine 600 Patient 230 lb 240 lb Weight Weight Bed scale Standing Scale Measurement Method Physical Exam: Alert and oriented. Positive mild tremor, no asterixis. No skin lesion. Positive lower extremity edema. Sclera and skin icteric. Abdomen is distended, nontender. Current Medications: Current Medications Sig/Yuval Start time Last Medication Dose Route Stop Time Status Admin Alprazolam 0.5 MG ONCE ONE 10/27 2014 DC 10/27 PO 10/27 Amlodipine Besylate 5 MG DAILY 10/26 1528 AC 10/28 PO 948 Ceftriaxone Sodium 1,000 MG DAILY 10/27 1000 AC 10/28 IV 0948 Fluticasone 2 PUF BID 10/28 1000 AC 10/28 Propionate INH 1229 Folic Acid 1 MG DAILY 10/26 1535 AC 10/28 PO 0948 Ibuprofen 400 MG ONCE ONE 10/28 0115 DC 10/28 PO 10/28 0116 0119 Melatonin 5 MG AT BEDTIME 10/28 2200 AC PO Phytonadione 10 MG DAILY 10/27 1000 AC 10/28 PO 0948 Sodium Chloride 1,000 ML Q13H 10/26 2130 AC 10/28 IV 1229 Results Pertinent Lab Results: Laboratory Tests 10/28 10/27 0653 0704 Chemistry Sodium (137 - 145 mmol/L) 138 139 Potassium (3.5 - 5.1 mmol/L) 3.4 L 3.4 L Chloride (98 - 107 mmol/L) 107 105 Carbon Dioxide (22 - 30 mmol/L) 20 L 22 Anion Gap (5 - 16) 12 12 BUN (9 - 20 mg/dL) 12 9 Creatinine (0.7 - 1.2 mg/dL) 0.5 L 0.5 L Estimated GFR (>60 ml/min) > 60 > 60 BUN/Creatinine Ratio (7 - 25 %) 24.0 18.0 Total Bilirubin (0.2 - 1.3 mg/dL) 22.0 H 19.5 H Direct Bilirubin (< 0.4 mg/dL) 20.0 H 17.2 H AST (17 - 59 U/L) 128 H 170 H ALT (21 - 72 U/L) 39 48 Alkaline Phosphatase (< 127 U/L) 129 H 144 H Total Protein (6.3 - 8.2 g/dL) 5.4 L 5.7 L Albumin (3.5 - 5.0 g/dL) 2.2 L 2.4 L Coagulation PT (9.4 - 12.5 SEC) 30.8 H 59.7 *H INR (0.90 - 1.17) 2.80 H 5.38 *H APTT (25 - 37 SEC) 59 H Hematology CBC w Diff NO MAN DIFF REQ NO MAN DIFF REQ WBC (4.8 - 10.8 /CUMM) 14.1 H 14.7 H RBC (4.70 - 6.10 /CUMM) 3.02 L 3.11 L Hgb (14.0 - 18.0 G/DL) 11.2 L 11.5 L Hct (42 - 52 %) 31.8 L 32.7 L MCV (80.0 - 94.0 FL) 105.5 H 105.0 H MCH (27.0 - 31.0 PG) 37.1 H 36.8 H MCHC (33.0 - 37.0 G/DL) 35.1 35.1 RDW (11.5 - 14.5 %) 19.4 H 19.9 H Plt Count (130 - 400 /CUMM) 155 163 MPV (7.4 - 10.4 FL) 8.8 8.7 Gran % (42.2 - 75.2 %) 83.9 H 83.0 H Lymphocytes % (20.5 - 51.1 %) 8.7 L 12.1 L Monocytes % (1.7 - 9.3 %) 6.0 3.8 Eosinophils % (0 - 5 %) 0.9 0.4 Basophils % (0.0 - 2.0 %) 0.5 0.7 Absolute Granulocytes (1.4 - 6.5 /CUMM) 11.9 H 12.2 H Absolute Lymphocytes (1.2 - 3.4 /CUMM) 1.2 1.8 Absolute Monocytes (0.10 - 0.60 /CUMM) 0.9 H 0.6 Absolute Eosinophils (0.0 - 0.7 /CUMM) 0.1 0.1 Absolute Basophils (0.0 - 0.2 /CUMM) 0.1 0.1 Immunology JUANITO Titer ND Anti-Nuclear Antibody (NEG,1:40) NEG 1:40 IFA ASSAY Serology Infectious Horry Titer (NEGATIVE) NEGATIVE 10/27 10/26 10/26 10/26 10/26 0310 2200 2128 1810 1344 Chemistry Lactic Acid (0.7 - 2.1 mmol/L) 1.9 Cancelled 1.7 3.0 H Other Body Source Fluid Albumin Cancelled 10/26 10/26 10/26 1336 1130 1120 Chemistry Sodium (137 - 145 mmol/L) 138 Cancelled Potassium (3.5 - 5.1 mmol/L) 3.5 Cancelled Chloride (98 - 107 mmol/L) 103 Cancelled Carbon Dioxide (22 - 30 mmol/L) 18 L Cancelled Anion Gap (5 - 16) 16 Cancelled BUN (9 - 20 mg/dL) 7 L Cancelled Creatinine (0.7 - 1.2 mg/dL) 0.6 L Cancelled Estimated GFR (>60 ml/min) > 60 BUN/Creatinine Ratio (7 - 25 %) 11.7 Cancelled Glucose (65 - 99 mg/dL) 149 H Cancelled Lactic Acid (0.7 - 2.1 mmol/L) 4.3 H Calcium (8.4 - 10.2 mg/dL) 8.2 L Cancelled Total Bilirubin (0.2 - 1.3 mg/dL) 19.8 H Cancelled Direct Bilirubin (< 0.4 mg/dL) 17.6 H Cancelled AST (17 - 59 U/L) 232 H Cancelled ALT (21 - 72 U/L) 59 Cancelled Alkaline Phosphatase (< 127 U/L) 187 H Cancelled Ammonia (9 - 30 umol/L) 82 H Total Protein (6.3 - 8.2 g/dL) 6.7 Cancelled Albumin (3.5 - 5.0 g/dL) 3.0 L Cancelled Globulin (1.9 - 4.2 gm/dL) 3.7 Cancelled Albumin/Globulin Ratio (1.1 - 2.2 %) 0.8 L Cancelled Amylase (30 - 110 U/L) < 30 L Lipase (23 - 300 U/L) 44 Coagulation PT (9.4 - 12.5 SEC) 104.6 *H INR (0.90 - 1.17) 9.38 *H APTT (25 - 37 SEC) 64 H Hematology CBC w Diff MAN DIFF ORDERED WBC (4.8 - 10.8 /CUMM) 20.1 H RBC (4.70 - 6.10 /CUMM) 3.46 L Hgb (14.0 - 18.0 G/DL) 12.4 L Hct (42 - 52 %) 35.9 L MCV (80.0 - 94.0 FL) 103.8 H MCH (27.0 - 31.0 PG) 35.9 H MCHC (33.0 - 37.0 G/DL) 34.6 RDW (11.5 - 14.5 %) 19.9 H Plt Count (130 - 400 /CUMM) 203 MPV (7.4 - 10.4 FL) 8.9 Segmented Neutrophils (42.2 - 75.2 %) 83 H Band Neutrophils (0.0 - 5.0 %) 9 H Lymphocytes (20.5 - 51.1 %) 4 L Monocytes (1.7 - 9.3 %) 4 Platelet Estimate (ADEQUATE) ADEQUATE Normocytic RBCs VERIFIED Normochromic RBCs VERIFIED Other Body Source Fluid WBC Cancelled Fld Total RBCs Counted Cancelled Serology Hepatitis A IgM Ab (NONREACTIVE) NONREACTIVE Hep Bs Antigen (NONREACTIVE) NONREACTIVE Hep B Core IgM Ab Conf (NONREACTIVE) NONREACTIVE Hepatitis C Antibody (NONREACTIVE) NONREACTIVE Toxicology Serum Alcohol (<10 MG/DL) < 10.0 10/26 1050 Urines Urine Color (YEL,AMB,STR) ICTRC H Urine Clarity (CLEAR) CLDY H Urine pH (5.0 - 8.0) 6.5 Ur Specific [place] (1.001 - 1.035) 1.025 Urine Protein (NEG,<30 MG/DL) 100 H Urine Ketones (NEG) TRACE H Urine Nitrite (NEG) POS H Urine Bilirubin (NEG) POS@ICTO H Urine Urobilinogen (0.1 - 1.0 EU/dl) 1.0 Ur Leukocyte Esterase (NEG) NEG Ur Microscopic SEDIMENT EXAMINED Urine RBC (0 - 5 /HPF) RARE Urine WBC (0 - 2 /HPF) 1-3 H Ur Epithelial Cells (NONE,FEW) MANY H Urine Mucus (FEW,NONE) MOD H Micro UA Comment Urine Hemoglobin (NEG) TRACE-INTACT H Urine Glucose (N MG/DL) NEG
== END 2017-10-28 17:33 | DRG 280 ==
LOC: ERH 10:12 → ERHI 12:40 → 2NB 12:40 → ERHI 15:34 → ENRESERV 17:11 → ENTRNSPT 18:02 → EDTRNSPTSTS 18:35 → EDTRNSPT 18:35 → 2NB 18:48 → CMPTRNSPT 18:53 → 2NB 10-28 17:33
PROVIDERS: Internal Medicine Adolescent Medicine; Physician Assistant; Student in an Organized Health Care Education/Training Program
DX: K70.11 Alcoholic hepatitis with ascites (principal); I10 Essential (primary) hypertension; E87.2 Acidosis; R94.5 Abnormal results of liver function studies; D68.9 Coagulation defect, unspecified; R74.0 Nonspecific elevation of levels of transaminase and lactic acid dehydrogenase [LDH]; E80.6 Other disorders of bilirubin metabolism; Z72.89 Other problems related to lifestyle; F10.10 Alcohol abuse, uncomplicated; Z87.891 Personal history of nicotine dependence; N62 Hypertrophy of breast; Z90.2 Acquired absence of lung [part of]; D72.829 Elevated white blood cell count, unspecified; D75.89 Other specified diseases of blood and blood-forming organs; E66.9 Obesity, unspecified; Z68.33 Body mass index [BMI] 33.0-33.9, adult; F32.9 Major depressive disorder, single episode, unspecified; F41.9 Anxiety disorder, unspecified; M87.9 Osteonecrosis, unspecified; F39 Unspecified mood [affective] disorder
CPT/HCPCS: 2NBSP; 87075; 36415; 36592; 71045; 74177; 81001; 82436; 87040; 87070; 87086; 93005; 93010; 99291; G0480; J0696; J3490

== ENCOUNTER 2017-12-27 17:30 | Emergency (ER) | payer OTHER ==
[~2017-12-27] VITALS: Ht 180.3 cm; Wt 99.8 kg
[~2017-12-27 17:30] MED LIST changes: +ALDACTONE25 MG PO; +FOLIC ACID1 M1 PO; +LIVER REFRESH PO; +MELATONIN3 M4 PO; +MIRALAX17 G1 PO; +TRAMADOL HCL50 M1 PO; +TRAZODONE HCL100 M1 PO
--- NOTE | 2017-12-27 17:40 | ED DYSPNEA/ASTHMA COMPLAINT ---
History of Present Illness General Chief Complaint: Dyspnea (COPD, CHF, Other) Stated Complaint: BIBA FOR RESP. DISTRESS Source: patient, family, old records Exam Limitations: no limitations Vital Signs & Intake/Output Vital Signs & Intake/Output Vital Signs Date Time Temp Pulse Resp B/P B/P Pulse O2 O2 Flow FiO2 Mean Ox Delivery Rate 12/27 1925 95 Nasal 2.0L Cannula 12/27 1910 99.8 110 24 102/62 96 Nasal 2.0L Cannula 12/27 1824 99.4 114 24 112/66 95 Nasal 2.0L Cannula 12/27 1742 99.5 105 25 116/61 95 Nasal 2.0L Cannula ED Intake and Output 12/28 0000 12/27 1200 Intake Total Output Total Balance Patient 220 lb Weight Weight Reported by Patient Measurement Method Allergies Coded Allergies: NO KNOWN ALLERGIES (11/07/10) Triage Nurses Notes Reviewed? 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 Patient typically follows with [facility] and requested to be brought there by EMS, where he has expected follow up this week. He has a history of cirrhosis with fibrosis on liver biopsy and occasional episodes of alcoholic hepatitis and exacerbation of cirrhosis. He is currently coughing, bringing up yellow sputum, with abdominal distention. He appears jaundiced. BP was 90/60 with EMS but 116/70 here, HR 85 and regular. He is mildly confused by exam, but knows where he is and why he is here. He cannot remember the name of his liver specialist. Family was insistent on transferring the patient to [facility] for continuity of care with his liver team. (Grey BENDER,Ean) Reconcile Medications Acetaminophen (Athenol) 325 MG TABLET 2 TAB PO Q4H PRN PAIN/TEMP>100 ( Reported) Acetaminophen (Acephen) 650 MG SUPP.RECT 1 SUPP IN Q4H PRN PAIN/TEMP>100 ( Reported) Albuterol Sulfate (Proventil Hfa) 90 MCG HFA.AER.AD 2 PUF INH Q4-6H PRN RESP. (Reported) Amlodipine Besylate (Norvasc) 5 MG TABLET 1 TAB PO DAILY HTN (Reported) Bisacodyl 10 MG SUPP.RECT 1 SUP RC AD PRN CONSTIPATION (Reported) Darbepoetin Jorge in Polysorbat (Aranesp) 60 MCG/0.3 ML SYRINGE 60 MCG SC AD KIDNEYS (Reported) Dextran 70/Hypromellose (Artificial Tears) 1 EACH DROPERETTE 1 DROP OU QPM PRN EYES (Reported) Famotidine 20 MG TABLET 1 TAB PO DAILY GI (Reported) Fluticasone Propionate 50 MCG/ACTUATION SPRAY.SUSP 2 SPRAY NASB DAILY ALLERGIES (Reported) Folic Acid 1 MG TABLET 1 MG PO DAILY supplement Folic Acid/Vit Bcomp,C (Noemy-Fer Tablet) (Unknown Strength) TABLET (Unknown Dose) PO DAILY SUPPLEMENT (Reported) Furosemide (Lasix) 40 MG TABLET 120 MG PO DAILY DIURETIC (Reported) Guaifenesin (Tussin) 100 MG/5 ML LIQUID 10 ML PO Q4H PRN COUGH (Reported) Insulin Lispro (Humalog) 100 UNIT/ML VIAL DM (Reported) Insulin-Lantus (Lantus) 100 UNIT/ML VIAL 10 UNITS SC QHS DM (Reported) Ipratropium/Albuterol Sulfate (Iprat-Albut 0.5-3(2.5) MG/3 Ml) 0.5 MG-3 MG (2.5 MG BASE)/3 ML AMPUL.NEB 1 VIAL INH Q4H PRN SHORTNESS OF BREATH (Reported) Lactulose 20 GRAM/30 ML SOLUTION 30 ML PO BID LIVER (Reported) [LIVER REFRESH] 1 TAB PO DAILY UNKNOWN (Reported) Melatonin 3 MG TABLET 1 TAB PO QPM SLEEP HELP Metoprolol Tartrate 25 MG TABLET 1 TAB PO BID HEART/BP (Reported) Midodrine HCl 5 MG TABLET 3 TAB PO TID BP (Reported) Montelukast Sodium 10 MG TABLET 1 TAB PO DAILY ALLERGIES/RESP (Reported) Multiple Vitamin (Multivitamins) 1 EACH TABLET 1 TAB PO DAILY SUPPLEMENT ( Reported) Ondansetron HCl (Zofran) 4 MG TABLET 1 TAB PO Q6 PRN N/V UP TO 7 DAYS ( Reported) Polyethylene Glycol 3350 (Miralax) 17 GRAM POWD.PACK 1 PAC PO DAILY CONSTIPATION (Reported) dissolve in water Polyethylene Glycol 3350 (Miralax) 17 GRAM POWD.PACK 1 PAC PO BID PRN CONSTIPATION (Reported) dissolve in water Rifaximin (Xifaxan) 550 MG TABLET 1 TAB PO BID LIVER (Reported) Simethicone 80 MG TAB.CHEW 1 TAB PO 4XDAILY PRN FLATULENCE (Reported) Spironolactone (Aldactone) 25 MG TABLET 1 TAB PO DAILY FLUID Tramadol HCl 50 MG TABLET 1 TAB PO BIDP PRN PAIN SCALE 7-10 (SEVERE) . Trazodone HCl 100 MG TABLET 1 TAB PO QPM DEPRESSION (Reported) (Gil BENDER,Blayne Lucia) Past History Travel History Traveled to [place] past 21 day No Medical History Any Pertinent Medical History? see below for history Neurological: NONE EENT: NONE Cardiovascular: hypertension, hyperlipidemia Respiratory: organizing pneumonia Gastrointestinal: NONE Hepatic: alcoholic hepatitis Renal: NONE Musculoskeletal: NONE Psychiatric: alcohol dependence, anxiety, depression Endocrine: NONE Blood Disorders: NONE Cancer(s): NONE History of MRSA: No History of VRE: No History of CDIFF: No Tetanus Vaccine: 04/08/14 Surgical History Surgical History: non-contributory Psychosocial History Who do you live with Patient/Self What is your primary language [place] Family History Hx Contributory? No (Ean Edmonds MD) Review of Systems Review of Systems Constitutional: Reports: no symptoms. EENTM: Reports: no symptoms. Respiratory: Reports: no symptoms. Cardiovascular: Reports: no symptoms. GI: Reports: no symptoms. Genitourinary: Reports: no symptoms. Musculoskeletal: Reports: no symptoms. Skin: Reports: no symptoms. Neurological/Psychological: Reports: no symptoms. Hematologic/Endocrine: Reports: no symptoms. Immunologic/Allergic: Reports: no symptoms. All Other Systems: Reviewed and Negative (Ean Edmonds MD) Physical Exam Physical Exam General Appearance: well developed/nourished, no apparent distress Head: atraumatic, normal appearance Eyes: Bilateral: normal appearance. Ears, Nose, Throat: normal pharynx, normal ENT inspection, hearing grossly normal Neck: normal inspection, full range of motion Respiratory: rhonchi Cardiovascular: regular rate/rhythm Gastrointestinal: soft, non-tender, distention Extremities: normal inspection, normal range of motion Neurologic/Psych: awake, alert, oriented x 3, normal mood/affect Skin: jaundice Core Measures ACS in differential dx? No CVA/TIA Diagnosis No Sepsis Present: No Sepsis Focused Exam Completed? No (Ean Edmonds MD) Progress Differential Diagnosis: COPD, pneumonia Plan of Care: Orders Procedure Date/time Status AMMONIA LEVEL 12/27 181 Complete BLOOD CULTURE 12/27 173 Active TROPONIN LEVEL 12/27 173 Complete PHOSPHORUS 12/27 173 Complete LACTIC ACID 12/27 173 Complete COMPREHENSIVE METABOLIC PANEL 12/27 1738 Complete CBC WITHOUT DIFFERENTIAL 12/27 1738 Complete EKG 12/27 1738 Active Laboratory Tests 12/27/17 2039: Lactic Acid Cancelled 12/27/17 181: Ammonia 18 12/27/17 1748: Anion Gap 15, Estimated GFR 15 L, BUN/Creatinine Ratio 5.2 L, Glucose 100 H, Lactic Acid 4.5 H, Calcium 8.6, Phosphorus 4.1, Total Bilirubin 33.9 H, AST 123 H, ALT 40, Alkaline Phosphatase 230 H, Troponin I < 0.01, Total Protein 6.3, Albumin 2.7 L, Globulin 3.6, Albumin/Globulin Ratio 0.8 L, CBC w Diff NO MAN DIFF REQ, RBC 2.88 L, MCV 100.3 H, MCH 34.0 H, MCHC 33.9, RDW 18.0 H, MPV 9.0, Gran % 82.4 H, Lymphocytes % 11.7 L, Monocytes % 5.2, Eosinophils % 0.6, Basophils % 0.1, Absolute Granulocytes 10.8 H, Absolute Lymphocytes 1.5, Absolute Monocytes 0.7 H, Absolute Eosinophils 0.1, Absolute Basophils 0 Microbiology 12/27 1814 BLOOD: Blood Culture - RECD 12/28 1747 BLOOD: Blood Culture - RECD Initial ED EKG: NSR, no ST T wave changes (Ean Edmonds MD) Departure Departure Disposition: OTHER [facility] ([facility]) Condition: Stable Clinical Impression Primary Impression: Pneumonia Qualifiers: Pneumonia type: due to unspecified organism Laterality: bilateral Lung location: lower lobe of lung Qualified Code: J18.1 - Lobar pneumonia, unspecified organism Secondary Impressions: Cirrhosis Qualifiers: Hepatic cirrhosis type: alcoholic cirrhosis Ascites presence: with ascites Qualified Code: K70.31 - Alcoholic cirrhosis of liver with ascites Referrals: Shruti BENDER,Clau Casarez (PCP/Family) Departure Forms: Customer Survey General Discharge Information (Ean Edmonds MD) Departure Comments 12/28/17, 6:56am... I was alerted by the micro lab that the preliminary blood culture 2/ bottles grew gram negative rods.... Pt has been transferred to [facility]... I contacted access who attempted to reach the hospitalist w/o success. I then faxed the patient's information to access who will follow up with hospitalist on day shift. (Gil BENDER,Blayne Lucia) Critical Care Note Critical Care Note Critical Care Time: non-applicable (Gil BENDER,Blayne Lucia)
[2017-12-27 18:02] LABS: ABSOLUTE BASOPHIL COUNT 0 /CUMM (0.0-0.2); ABSOLUTE EOSINOPHIL COUNT 0.1 /CUMM (0.0-0.7); ABSOLUTE GRANULOCYTE CT 10.8 /CUMM (1.4-6.5); ABSOLUTE LYMPH COUNT 1.5 /CUMM (1.2-3.4); ABSOLUTE MONOCYTE COUNT 0.7 /CUMM (0.10-0.60); BASOPHIL % 0.1 % (0.0-2.0); EOSINOPHIL % 0.6 % (0-5); GRANULOCYTE % 82.4 % (42.2-75.2); HEMATOCRIT 28.9 % (42-52); MEAN CORPUSCULAR HGB CONC 33.9 G/DL (33.0-37.0); MEAN CORPUSCULAR VOLUME 100.3 FL (80.0-94.0); PLATELET COUNT 169 /CUMM (130-400); RED BLOOD CELL CT 2.88 /CUMM (4.70-6.10); WHITE BLOOD CELL COUNT 13.2 /CUMM (4.8-10.8)
[2017-12-27] MEDS ORDERED: MONTELUKAST SOD10 M1 PO (18:17)
[2017-12-27] MEDS ORDERED: METOPROLOL TART25 M1 PO (18:18)
[2017-12-27] MEDS ORDERED: RENA-VITE TABL0.8 MG PO (18:18)
[2017-12-27] MEDS ORDERED: ARANESP60 MCG/0.3 SC (18:28)
[2017-12-27] MEDS ORDERED: FAMOTIDINE20 M1 PO (18:29)
[2017-12-27] MEDS ORDERED: LASIX40 M1 PO (18:29)
[2017-12-27] MEDS ORDERED: LANTUS100 UNIT/1 SC (18:31)
[2017-12-27] MEDS ORDERED: HUMALOG100 UNIT/2 SC (18:32)
[2017-12-27] MEDS ORDERED: LACTULOSE20 GM/30 M PO (18:33)
[2017-12-27] MEDS ORDERED: MIDODRINE HCL5 M1 PO (18:34)
[2017-12-27] MEDS ORDERED: MULTIVITAMINS1 EAC9 PO (18:34)
[2017-12-27] MEDS ORDERED: PROVENTIL HFA6.7 GM INH (18:35)
[2017-12-27] MEDS ORDERED: XIFAXAN550 M1 PO (18:35)
[2017-12-27] MEDS ORDERED: BISACODYL10 M1 RC (18:36)
[2017-12-27] MEDS ORDERED: ATHENOL325 MG PO (18:37)
[2017-12-27] MEDS ORDERED: TUSSIN100 MG/51 PO (18:38)
[2017-12-27] MEDS ORDERED: ACEPHEN650 M1 PR (18:38)
[2017-12-27] MEDS ORDERED: ZOFRAN4 M2 PO (18:39)
[2017-12-27] MEDS ORDERED: IPRAT-ALBUT 0.5-3 ML INH (18:39)
[2017-12-27] MEDS ORDERED: MIRALAX17 G1 PO (18:40)
[2017-12-27] MEDS ORDERED: SIMETHICONE80 M1 PO (18:41)
--- NOTE | 2017-12-27 18:42 | RADIOLOGY REPORT ---
EXAMINATION: XR CHEST, PORTABLE CLINICAL INFORMATION: Sepsis with bilateral rhonchi. COMPARISON: Chest radiography 10/30/2017. TECHNIQUE: Portable frontal view of the chest was obtained. FINDINGS: Right internal jugular dual lumen catheter terminates near the cavoatrial junction. The lungs are hypoexpanded. Left basilar opacification with blunting of the left costophrenic angle. No right lung consolidation. Mediastinal contours are not widened. No acute osseous abnormalities. IMPRESSION: Left basilar opacification and pleural effusion, new from prior exam.
[2017-12-27] MEDS ORDERED: ARTIFICIAL TEA1 EACH OU (18:43)
[2017-12-27 19:10] VITALS: BP 102/62
== END 2017-12-27 19:33 | disposition short-term general hospital (02) ==
LOC: ERH 17:30
PROVIDERS: Internal Medicine
DX: J18.9 Pneumonia, unspecified organism (principal); K70.30 Alcoholic cirrhosis of liver without ascites; I10 Essential (primary) hypertension
CPT/HCPCS: 71045; 87040; 93005; 93010; 96374